=== PATIENT | female | born 1955 | race African-American/Black ===

== ENCOUNTER 2016-08-05 03:43 | Emergency (ER) | payer MEDICAID, OTHER ==
[~2016-08-05] VITALS: Ht 157.5 cm; Wt 68.9 kg
--- NOTE | 2016-08-05 03:50 | NUR ---
61 YO FEMALE BB RA FROM HOME. PT IS LAERT X 3, C/O CHEST PRESSURE. PT AMBULATED TO ER BED WITH STEADY GAIT, SKIN WARM AND DRY, RR EVEN AND UNLABORED. PT GOWNED, PLACED ON SHADE CUTTER. WILL CONITNUE TO MONITOR
[2016-08-05 04:07] LABS: BASOPHILS % (AUTO) 0.9 % (0.0-2.0); EOSINOPHILS # (AUTO) 0.1 /CMM (0.0-0.7); EOSINOPHILS % (AUTO) 1.8 % (0.0-6.0); HEMATOCRIT 31 % (33-45); HEMOGLOBIN 10.6 g/dL (11.5-14.8); LYMPHOCYTES # (AUTO) 2.2 /CMM (0.8-4.8); LYMPHOCYTES % (AUTO) 50.7 % (20.0-44.0); MEAN CORPUSCULAR HEMOGLOBIN 32 PG (26.0-33.0); MEAN CORPUSCULAR HGB CONC 34 g/dl (31.0-36.0); MEAN CORPUSCULAR VOLUME 94 fL (82-100); MONOCYTES # (AUTO) 0.4 /CMM (0.1-1.30); NEUTROPHILS # (AUTO) 1.6 /CMM (1.8-8.9); NEUTROPHILS % (AUTO) 36.6 % (43.0-81.0); PLATELET COUNT (AUTO) 190 /CMM (150-450); RDW COEFFICIENT OF VARIATION 14.5 (11.5-15.0); RED BLOOD CELL COUNT(AUTO) 3.32 MIL/uL (4.0-5.2); WHITE BLOOD COUNT (AUTO) 4.3 K/uL (4.3-11.0)
[2016-08-05 04:15] LABS: CALCIUM, SERUM 9.2 mg/dL (8.5-10.1); CARBON DIOXIDE 25 mmol/L (21-32); CHLORIDE 105 mmol/L (98-107); CREATININE 0.7 mg/dL (0.6-1.3); GLUCOSE 86 mg/dL (74-106); POTASSIUM 3.5 mmol/L (3.5-5.1); SODIUM SERUM 141 mmol/L (136-145); UREA NITROGEN, BLOOD 21 mg/dL (7-18)
[2016-08-05 04:19] LABS: INR 0.93 (0.87-1.13); PROTHROMBIN TIME 9.9 SECS (9.5-12.7)
[2016-08-05 04:24] LABS: TROPONIN I < 0.017 ng/mL (0.00-0.056)
[2016-08-05] MEDS ORDERED: IBUPROFEN 400 MG TABLET ONE (04:46)
[2016-08-05 04:50] VITALS: BP 150/87
--- NOTE | 2016-08-05 04:51 | NUR ---
Patient discharged to home in stable condition. Written and verbal after care instructions given. Patient verbalizes understanding of instruction. PT ambulatory with a steady gait VITAL SIGNS WITHIN NORMAL LIMITS.
[2016-08-05] MEDS ORDERED: IBUPROFEN 400 MG TABLET PO ONE (05:00)
== END 2016-08-05 04:51 | disposition home or self-care (01) ==
LOC: ER 03:46
DX: R07.89 Other chest pain (principal); R11.0 Nausea; D21.9 Benign neoplasm of connective and other soft tissue, unspecified
CPT/HCPCS: 36415; 71010-TC; 80048-TC; 84484-TC; 85025-TC; 85730-TC; A4606; Z7610

== ENCOUNTER 2016-10-09 11:22 | Emergency (ER) | payer MEDICAID, OTHER ==
[~2016-10-09] VITALS: Ht 152.4 cm; Wt 61.7 kg
--- NOTE | 2016-10-09 11:30 | NUR ---
PT TO ER BED 09. C/O HEADACHE UNRELIEVED W/ MEDS. STATES BEEN HAVING HEADACHES SINCE SUFFERING FROM A CONTUSION 2 YEARS AGO. NO RECENT TRAUMA. PT IS AAO, NAD NOTED AWAITING MD BROOKS.
--- NOTE | 2016-10-09 11:37 | NUR ---
DR OLSEN AT BEDSIDE FOR EVAL.
[2016-10-09] MEDS ORDERED: METOCLOPRAMIDE HCL 10 MG/2 ML VIAL IV ONE (12:00)
[2016-10-09] MEDS ORDERED: diphenhydrAMINE HCL 50 MG/ML VIAL IV ONE (12:00)
[2016-10-09] MEDS ORDERED: IV NS 0.9% 1,000 ML BAG IV ONE (12:00)
[2016-10-09] MEDS ORDERED: ONDANSETRON 4 MG TAB.RAPDIS PO ONE (12:00)
[2016-10-09] MEDS ORDERED: DEXAMETHASONE SOD PHOSPHATE 10 MG/ML VIAL IV ONE (12:00)
[2016-10-09] MEDS ORDERED: METOCLOPRAMIDE HCL 10 MG/2 ML VIAL ONE (12:27)
[2016-10-09] MEDS ORDERED: diphenhydrAMINE HCL 50 MG/ML VIAL ONE (12:27)
[2016-10-09] MEDS ORDERED: DEXAMETHASONE SOD PHOSPHATE 10 MG/ML VIAL ONE (12:27)
[2016-10-09] MEDS ORDERED: ONDANSETRON 4 MG TAB.RAPDIS ONE (12:28)
[2016-10-09 12:31] LABS: APPEARANCE,URINE Clear (CLEAR); BILIRUBIN,URINE Negative (NEGATIVE); BLOOD, URINE Negative Ery/uL (NEGATIVE); COLOR,URINE Yellow (YELLOW); KETONES,URINE 15 (NEGATIVE); LEUKOCYTE ESTERASE ,URINE Negative (NEGATIVE); NITRITE, URINE Negative (NEGATIVE); PROTEIN,URINE Negative (NEGATIVE); UGLUCOSE Negative (NEGATIVE); UROBILINOGEN,URINE 0.2 EU/dL (0.2)
[2016-10-09 12:43] LABS: BACTERIA,URINE Few /HPF (None Seen); RBC,URINE 0-2 /HPF (0-2); SQUAMOUS EPITHELIAL CELL,UR Rare /HPF (None Seen); WBC,URINE 0-2 /HPF (0-3)
[2016-10-09 13:38] VITALS: BP 148/84
--- NOTE | 2016-10-09 13:38 | NUR ---
Patient discharged to home in stable condition. Written and verbal after care instructions given. Patient verbalizes understanding of instruction.IV removed. Catheter intact and site benign. Pressure and 4x4 applied to site. No bleeding noted.
== END 2016-10-09 13:43 | disposition home or self-care (01) ==
LOC: ER 11:27
DX: G43.909 Migraine, unspecified, not intractable, without status migrainosus (principal)
CPT/HCPCS: 81001; 96374; 96375; 99284; A4606; J1100; J1200; J2765; J7030; Q0162; Z7610; 81000-TC

== ENCOUNTER 2018-04-27 11:39 | Emergency (ER) | payer OTHER ==
[~2018-04-27] VITALS: Ht 149.9 cm; Wt 76.7 kg
[2018-04-27 11:51] VITALS: BP 135/85
== END 2018-04-27 12:10 | disposition home or self-care (01) ==
LOC: ER 11:39
DX: G89.29 Other chronic pain (principal); Z98.890 Other specified postprocedural states
CPT/HCPCS: Z7502

== ENCOUNTER 2018-08-23 07:25 | Emergency (ER) | payer MEDICAID, OTHER ==
[~2018-08-23] VITALS: Ht 149.9 cm; Wt 74.8 kg
[2018-08-23 07:30] VITALS: BP 131/96
[2018-08-23] MEDS ORDERED: HYDROCODONE/APAP 5/325MG 1 EACH TABLET ONE (07:54)
[2018-08-23] MEDS ORDERED: HYDROCODONE/APAP 5/325MG 1 EACH TABLET PO ONE (08:00)
[2018-08-23] MEDS ORDERED: IV NS 0.9% 1,000 ML BAG IV ONE (08:30)
== END 2018-08-23 08:21 | disposition home or self-care (01) ==
LOC: ER 07:27
DX: G89.29 Other chronic pain (principal); M25.512 Pain in left shoulder; Z98.890 Other specified postprocedural states

== ENCOUNTER 2021-09-09 14:27 | Emergency (ER) | payer MEDICARE, OTHER ==
[~2021-09-09] VITALS: Ht 149.9 cm; Wt 70.3 kg
[2021-09-09 14:37] VITALS: BP 146/87
--- NOTE | 2021-09-09 14:40 | NUR ---
The patient bibs for "Rash on hand x5wks, Nail chipping and face seems swollen x3d". In room air and denies SOB. Respiration regular and unlabored. WIll continue to monitor the patient.
[2021-09-09] MEDS ORDERED: TRIA60LO7 TP (14:51)
--- NOTE | 2021-09-09 15:01 | NUR ---
Patient discharged to home in stable condition. Written and verbal after care instructions given. Patient verbalizes understanding of instruction.
== END 2021-09-09 15:02 | disposition home or self-care (01) ==
LOC: ER 14:41
DX: L30.9 Dermatitis, unspecified (principal); Z98.890 Other specified postprocedural states

== ENCOUNTER 2022-04-19 20:17 | Emergency (ER) | payer MEDICARE, OTHER ==
[~2022-04-19] VITALS: Ht 149.9 cm; Wt 67.6 kg
[~2022-04-19 20:17] MED LIST: TRIA60LO7 TP
[2022-04-19 22:34] VITALS: BP 160/89
--- NOTE | 2022-04-19 22:36 | NUR ---
ARMANDO FROM HOME REQUESTING MED REFILL FOR MIGRAINE & TDAP
[2022-04-19] MEDS ORDERED: TDAP [DIPH/PERTUSSIS/TET] 0.5 ML VIAL IM ONE ×2 (22:39→23:00)
[2022-04-19] MEDS ORDERED: BUTA1CAP58 PO ×2 (22:46→22:49)
--- NOTE | 2022-04-19 23:15 | NUR ---
Patient discharged to home in stable condition. Written and verbal after care instructions given. Patient verbalizes understanding of instruction.
== END 2022-04-19 23:36 | disposition home or self-care (01) ==
LOC: ER 20:18
DX: G43.909 Migraine, unspecified, not intractable, without status migrainosus (principal); Z98.890 Other specified postprocedural states; Z79.899 Other long term (current) drug therapy
CPT/HCPCS: 73630-TC; 90715

== ENCOUNTER 2022-06-07 16:57 | Inpatient (IN) | payer BC, MEDICARE, OTHER ==
[~2022-06-07] VITALS: Ht 149.9 cm; Wt 66.7 kg
[~2022-06-07 16:57] MED LIST changes: +BUTA1CAP58 PO
--- NOTE | 2022-06-07 17:22 | NUR ---
BIBS FOR DEPRESSION/SI. A/O X 3, ABLE TO MAKE NEEDS KNOWN, TOLERATING WELL ON ROOM AIR.
--- NOTE | 2022-06-07 17:22 | NUR ---
PATIENT WITH FAMILY MEMBER AT BEDSIDE
--- NOTE | 2022-06-07 17:30 | NUR ---
BLOOD SAMPLES OBTAINED
--- NOTE | 2022-06-07 17:30 | NUR ---
URINE SAMPLE OBTAINED
[2022-06-07 17:54] LABS: BILIRUBIN,URINE NEGATIVE (NEGATIVE); COLOR,URINE YELLOW (YELLOW); LEUKOCYTE ESTERASE ,URINE TRACE (NEGATIVE); NITRITE, URINE NEGATIVE (NEGATIVE); PROTEIN,URINE NEGATIVE (NEGATIVE); UGLUCOSE NEGATIVE (NEGATIVE); UROBILINOGEN,URINE 0.2 EU/dL (0.2)
[2022-06-07 18:00] LABS: BASOPHILS % (AUTO) 0.9 % (0.0-2.0); EOSINOPHILS % (AUTO) 2.7 % (0.0-6.0); HEMATOCRIT 30 % (33-45); LYMPHOCYTES % (AUTO) 52.8 % (20.0-44.0); MEAN CORPUSCULAR HGB CONC 33 g/dl (31.0-36.0); MEAN CORPUSCULAR VOLUME 94 fL (82-100); MONOCYTES # (AUTO) 0.3 K/uL (0.1-1.30); MONOCYTES % (AUTO) 7.6 % (2.0-12.0); NEUTROPHILS # (AUTO) 1.4 K/uL (1.8-8.9); PLATELET COUNT (AUTO) 213 K/uL (150-450); RED BLOOD CELL COUNT(AUTO) 3.18 MIL/uL (4.0-5.2); WHITE BLOOD COUNT (AUTO) 3.8 K/uL (4.3-11.0)
[2022-06-07 18:14] LABS: CALCIUM, SERUM 9.4 mg/dL (8.5-10.1); CARBON DIOXIDE 26 mmol/L (21-32); CHLORIDE 107 mmol/L (98-107); CREATININE 0.7 mg/dL (0.6-1.3); GLUCOSE 86 mg/dL (74-106); POTASSIUM 3.6 mmol/L (3.5-5.1); SODIUM SERUM 143 mmol/L (136-145); UREA NITROGEN, BLOOD 15 mg/dL (7-18)
[2022-06-07 18:20] LABS: ALANINE AMINOTRANSFERASE 33 U/L (12-78); ALBUMIN 3.5 g/dL (3.4-5.0); ALKALINE PHOSPHATASE 78 U/L (46-116); ASPARTATE AMINOTRANSFERASE 26 U/L (15-37); BILIRUBIN,DIRECT 0.1 mg/dL (0.0-0.2); BILIRUBIN,TOTAL 0.3 mg/dL (0.2-1.0); TOTAL PROTEIN, SERUM 6.7 g/dL (6.4-8.2)
[2022-06-07 18:26] LABS: ALCOHOL, BLOOD < 3 mg/dL (0-0)
[2022-06-07 18:49] LABS: RBC,URINE 0-2 /HPF (0-2); WBC,URINE NONE SEEN /HPF (0-3)
[2022-06-07 18:50] LABS: BACTERIA,URINE None seen /HPF (None Seen); SQUAMOUS EPITHELIAL CELL,UR Rare /HPF (None Seen)
--- NOTE | 2022-06-07 21:13 | NUR ---
FAXED CLINICALS TO [facility].
--- NOTE | 2022-06-07 22:08 | NUR ---
CALLED MATEUS [phone]
--- NOTE | 2022-06-08 01:31 | NUR ---
REPORT GIVEN TO MAHNAZ CABALLERO FOR CHRIS
[2022-06-08 02:00] VITALS: BP 147/81
--- NOTE | 2022-06-08 02:09 | NUR ---
PT TRANSFERRED TO [facility]
--- NOTE | 2022-06-08 02:27 | NUR ---
RN NOTES : ADMISSION NOTES: ADMITTED THIS 67Y/O FEMALE PATIENT ADMITTED FROM [facility], INITIALLY FROM HOME. ADMITTED TO 5150 HOLD PER HOLD GD , PT. HEARING VOICES,TELLING HER TO HURT HERSELF AND ACTING IN A BIZARRE BEHAVIOUR , A, UPON FACE TO FACE ASSESSMENT PATIENT IS A&OX3 ,DEPRESSED,EASILY AGITATED ,COOPERTIVE,POOR DECISION MAKING, BIZARRE,DENIES SI /HI AT THIS TIME, PT. IS POOR HISTORIAN, POOR INSIGHT ,POOR JUDGEMENT , BOTH MD AWARE AND NOTIFIED OF THE ADMISSION, BELONGINGS CONTRABAND WERE DONE , PT. RIGHTS DISCUSS BY COLLECTIONS OFFICER , PROVIDE THE PT. WITH HANDBOOK, AND MEDICATIONS GUIDE, ENVIRONMENTAL SAFETY CHECK DONE, ENCOURAGED PT. VERBALIZED ANY FEELING CONCERN TO STAFF, ORIENT TO UNIT POLICY, NO ACUTE DISTRESS NOTED,VITAL SIGNS WNL ,DENIES ANY PAIN AT THIS TIME,WILL CONTINUE TO MONITOR FOR Q15 SAFETY AND BEHAVIOR.
[2022-06-08] MEDS ORDERED: IBUP-1953 PO (02:29)
[2022-06-08] MEDS ORDERED: SERT100T PO (02:32)
[2022-06-08] MEDS ORDERED: RISP0.5T65 PO (02:32)
[2022-06-08] MEDS ORDERED: BUSP10TA3 PO (02:33)
[2022-06-08] MEDS ORDERED: GABA-532 PO (02:34)
[2022-06-08] MEDS ORDERED: DICL100G34 TP (02:36)
[2022-06-08] MEDS ORDERED: ONDA4TAB11 PO (02:38)
[2022-06-08] MEDS ORDERED: ACETAMINOPHEN 325 MG TABLET PO PRN (03:00)
[2022-06-08] MEDS ORDERED: MAGNESIUM HYDROXIDE 30 ML UDC PO PRN (03:00)
[2022-06-08] MEDS ORDERED: LORAZEPAM 0.5 MG TABLET PO PRN (03:00)
[2022-06-08] MEDS ORDERED: MAG HYDROX/AL HYDROX/SIMETH 30 ML UDC PO PRN (03:00)
[2022-06-08] MEDS ORDERED: BLOOD SUGAR DIAGNOSTIC 1 EACH STRIP IN ONE (03:00)
[2022-06-08] MEDS ORDERED: TEMAZEPAM 7.5 MG CAPSULE PO PRN (03:00)
[2022-06-08 03:20] VITALS: BP 123/74
[2022-06-08] MEDS ORDERED: DICLOFENAC TOPICAL 100 GM TUBE TP PRN (04:00)
[2022-06-08] MEDS ORDERED: VITAMINS A AND D 56.7 GM TUBE TP PRN (05:30)
[2022-06-08 08:00] VITALS: BP 143/80
[2022-06-08] MEDS: TRIAMCINOLONE 0.025% ACETONIDE 60 ML BOTTLE TP SCH ×2 (09:39→17:23)
[2022-06-08] MEDS: IBUPROFEN 400 MG TABLET PO PRN (13:07)
--- NOTE | 2022-06-08 13:07 | NUR ---
NURSE NOTE: PT C/O PAIN AT THIS TIME, MOTRIN PO ADMINISTERED ORDERED. PT BREANA WELL WILL CONT TO MONITOR.
[2022-06-08] MEDS: SERTRALINE HCL 50 MG TABLET PO SCH (13:51)
[2022-06-08] MEDS: risperiDONE 1 MG TABLET PO SCH ×2 (13:51→17:23)
--- NOTE | 2022-06-08 14:07 | NUR ---
NURSE NOTE: PT RESTING AT THIS TIME. MOTRIN EFFECTIVE AT THIS TIME. WILL CONT TO MONITOR.
[2022-06-08 16:00] VITALS: BP 121/55
[2022-06-08] MEDS: busPIRone 5 MG TABLET PO SCH (17:23)
--- NOTE | 2022-06-08 19:48 | NUR ---
WORK CHECKER NOTES: RECEIVED PATIENT IN BED ASLEEP COMFORTABLY ,NO ACUTE DISRTRESS.A/OX 3. ABLE TO VERBALIZED NEEDS AND CONCERNED.RESPIRATION EVEN AND NON-LABORED. NO C/O PAIN AT THIS TIME. DENIES SUICIDAL IDEATIONS AT THIS TIME.PATIENT IS CALM ,COOPERATIVE AND AMBULATORY WITH STEADY GAIT. WILL CONTINUE TO MONITOR Q15 FOR SAFETY AND BEHAVIOR WITH HELP OF STAFF.
[2022-06-08 21:09] VITALS: BP 121/59
[2022-06-09 07:08] LABS: BASOPHILS % (AUTO) 0.8 % (0.0-2.0); EOSINOPHILS % (AUTO) 3.5 % (0.0-6.0); HEMATOCRIT 31 % (33-45); HEMOGLOBIN 10.4 g/dL (11.5-14.8); LYMPHOCYTES # (AUTO) 1.4 K/uL (0.8-4.8); LYMPHOCYTES % (AUTO) 49.3 % (20.0-44.0); MEAN CORPUSCULAR HGB CONC 33 g/dl (31.0-36.0); MEAN CORPUSCULAR VOLUME 95 fL (82-100); MONOCYTES # (AUTO) 0.3 K/uL (0.1-1.30); MONOCYTES % (AUTO) 11.5 % (2.0-12.0); NEUTROPHILS % (AUTO) 34.9 % (43.0-81.0); PLATELET COUNT (AUTO) 206 K/uL (150-450); RED BLOOD CELL COUNT(AUTO) 3.29 MIL/uL (4.0-5.2); WHITE BLOOD COUNT (AUTO) 2.9 K/uL (4.3-11.0)
[2022-06-09 07:38] LABS: THYROID STIMULATING HORMONE 1.212 uIU/mL (0.358-3.74)
[2022-06-09 07:53] LABS: CALCIUM, SERUM 9.2 mg/dL (8.5-10.1); CREATININE 0.8 mg/dL (0.6-1.3); POTASSIUM 4.1 mmol/L (3.5-5.1)
[2022-06-09 08:00] VITALS: BP 123/71
[2022-06-09] MEDS: risperiDONE 1 MG TABLET PO SCH ×2 (08:28→17:04)
[2022-06-09] MEDS: busPIRone 5 MG TABLET PO SCH ×2 (08:28→17:04)
[2022-06-09] MEDS: TRIAMCINOLONE 0.025% ACETONIDE 60 ML BOTTLE TP SCH ×2 (08:28→17:05)
[2022-06-09] MEDS: IBUPROFEN 400 MG TABLET PO PRN (12:48)
[2022-06-09] MEDS: SERTRALINE HCL 50 MG TABLET PO SCH (12:48)
--- NOTE | 2022-06-09 12:48 | NUR ---
NURSE NOTE: PT C/O PAIN AT LEVEL 9/10. MOTRIN PO ADMINISTERED ORDERED. PT BREANA WELL. WILL CONT TO MONITOR.
--- NOTE | 2022-06-09 13:48 | NUR ---
NURSE NOTE: PT STATED THAT SHE IS FEELING A LITTLE BETTER. MOTRIN EFFECTIVE AT THIS TIME. WILL CONT TO MONITOR.
[2022-06-09 16:00] VITALS: BP 116/65
[2022-06-09 20:41] VITALS: BP 112/53
[2022-06-09] MEDS ORDERED: risperiDONE 1 MG TABLET PO SCH (22:00)
[2022-06-10 08:00] VITALS: BP 139/86
[2022-06-10] MEDS: risperiDONE 1 MG TABLET PO SCH ×3 (08:33→21:41)
[2022-06-10] MEDS: TRIAMCINOLONE 0.025% ACETONIDE 60 ML BOTTLE TP SCH ×2 (08:34→16:40)
[2022-06-10] MEDS: busPIRone 5 MG TABLET PO SCH ×2 (08:34→16:39)
--- NOTE | 2022-06-10 10:10 | NUR ---
KENY Initial Discharge Note: Patient lives at home located at [address] [place] [address], [place] [address]; ([phone]). Pt stated that she lives with her daughter Tomasa ([phone]). Pt would want to return back home. KENY will work with the MD, family, and treatment team.
--- NOTE | 2022-06-10 10:11 | NUR ---
KENY Clinical Note: Pt placed on a 5150 hold for GD. Pt brought in due to aggressive behavior. Patient lives at home located at [address] [place] [address]; ([phone]). Pt stated that she lives with her daughter Tomasa ([phone]).
[2022-06-10] MEDS: SERTRALINE HCL 50 MG TABLET PO SCH (13:07)
--- NOTE | 2022-06-10 13:08 | NUR ---
KENY Family Contact: SW contacted pt's daughter Toamsa ([phone]) and discussed pt's treatment/discharge plan. Pt welcomed back home. Daughter cares for pt at home.
[2022-06-10 16:00] VITALS: BP 104/57
[2022-06-10 20:22] VITALS: BP 112/55
[2022-06-10] MEDS: ATORVASTATIN 10 MG TABLET PO SCH (21:41)
--- NOTE | 2022-06-11 07:15 | NUR ---
RESEARCH QUALITY ASSURANCE ANALYST OPENING NOTE PATIENT A/A/OX3, VERY HAPPY AND COMMUNICATIVE. C/O CONTINUE TO HAVE HEADACHES, OCC. LEVEL 8-9 IN SCALE 1-10. I EXPLAINED TO PATIENT THAT WE WILL REVIEW PAIN MANAGEMENT WITH HER DOCTOR, FOR NOW I WILL ADMINISTER THE PAIN MEDICATION FOLLOWING DOCTORS ORDERS. PATIENT VERBALIZED UNDERSTANDING INSTRUCTIONS. SAFETY MEASURES IN PLACE, BED LOCK TO THE LOWEST POSITION, CALL LIGHT, TABLE WITHIN REACH. CONT. TO MONITOR.
[2022-06-11 08:00] VITALS: BP 135/77
[2022-06-11] MEDS: busPIRone 5 MG TABLET PO SCH ×2 (09:34→17:24)
[2022-06-11] MEDS: TRIAMCINOLONE 0.025% ACETONIDE 60 ML BOTTLE TP SCH ×2 (11:13→17:25)
[2022-06-11] MEDS: SERTRALINE HCL 50 MG TABLET PO SCH (13:11)
[2022-06-11 16:00] VITALS: BP 109/67
[2022-06-11] MEDS: risperiDONE 1 MG TABLET PO SCH ×2 (17:24→21:05)
--- NOTE | 2022-06-11 19:10 | NUR ---
PETROLEUM INSPECTOR SUPERVISOR CLOSING NOTE PATIENT PLEASANT, NO S/S OF DISCOMFORT NOTED. PATIENT DENIES PAIN. PATIENT IS AMBULATING. SAFETY MEASURES IN PLACE BED LOCK TO THE LOWEST POSITION. TABLE WITHIN REACH. WILL ENDORSE TO THE FOLLOWING NURSE.
[2022-06-11 19:58] VITALS: BP 107/55
[2022-06-11] MEDS: ATORVASTATIN 10 MG TABLET PO SCH (21:05)
[2022-06-12 08:00] VITALS: BP 126/76
[2022-06-12] MEDS: busPIRone 5 MG TABLET PO SCH ×2 (08:42→17:31)
[2022-06-12] MEDS: risperiDONE 1 MG TABLET PO SCH ×3 (08:42→21:29)
[2022-06-12] MEDS: TRIAMCINOLONE 0.025% ACETONIDE 60 ML BOTTLE TP SCH ×2 (08:43→17:35)
--- NOTE | 2022-06-12 12:09 | NUR ---
Court Notification: SW contacted pt's daughter Tomasa ([phone]) and left a voicemail of [phone].
--- NOTE | 2022-06-12 12:09 | NUR ---
Court Hearing: Patient's court hearing for 5250 was today and it was upheld for GD and danger to self.
[2022-06-12] MEDS: SERTRALINE HCL 50 MG TABLET PO SCH (12:51)
[2022-06-12 16:00] VITALS: BP 106/59
[2022-06-12 20:08] VITALS: BP 106/58
[2022-06-12] MEDS: ATORVASTATIN 10 MG TABLET PO SCH (21:29)
[2022-06-13 08:00] VITALS: BP 112/62
[2022-06-13] MEDS: busPIRone 5 MG TABLET PO SCH ×2 (08:08→16:48)
[2022-06-13] MEDS: risperiDONE 1 MG TABLET PO SCH ×3 (08:09→21:42)
[2022-06-13] MEDS: TRIAMCINOLONE 0.025% ACETONIDE 60 ML BOTTLE TP SCH ×2 (08:11→17:00)
--- NOTE | 2022-06-13 09:15 | NUR ---
RN Notes: Received pt. awake in room, pleasant upon approached and responsive to staffs. Ate 100% for breakfast and compliant on meds. Encouraged to verbalize feelings and motivated to attend group activity. Needs attended and will continue to monitor for safety.
[2022-06-13] MEDS: SERTRALINE HCL 50 MG TABLET PO SCH (12:16)
[2022-06-13 16:00] VITALS: BP 118/69
--- NOTE | 2022-06-13 17:17 | NUR ---
Per pharmacist (Maris), Kenalog is out of stock and it will come tomorrow.
--- NOTE | 2022-06-13 19:30 | NUR ---
[facility] RN NOTE, RECEIVED PATIENT AWAKE AND IN BED, HAS A COMPLAINT OF CHRONIC GENERALIZED PAIN AT 2 OUT OF 10 ON THE PAIN SCALE. PATIENT IS TAKING MEDICATION FOR THIS PAIN. PATIENT IS DISPLAYING NO S/S OF APPARENT DISTRESS AT THIS TIME. PATIENT BREATHING IS UNLABORED WITH EQUAL RISE AND FALL OF THE CHEST. PATIENT IS ALERT AND ORIENTED X 3 ON ROOM AIR WITH A SPO2 98%. PATIENT IS COMPLIANT WITH MEDICATIONS, POLITE, CALM, MAKES NEEDS KNOWN, AND COOPERATIVE. PATIENT DENIES SUICIDAL AND HOMICIDAL IDEATIONS AT THIS TIME. PATIENT ASSISTED WITH TURNING AND REPOSITIONING Q2HR AND PRN FOR COMFORT AND CIRCULATION. PATIENT HAS NO NEEDS AT THIS TIME. PATIENT EDUCATED ON THE USE OF THE CALL CARLOS. PATIENT BED SIDE RAILS UP X 2 FOR SAFETY. PATIENT BED IS LOCKED, LOW, WITH BED ALARM ON. WILL CONTINUE TO MONITOR THIS PATIENT Q15 MINUTES WITH THE HELP OF STAFF TO MAINTAIN SAFETY.
[2022-06-13] MEDS: IBUPROFEN 400 MG TABLET PO PRN (19:33)
--- NOTE | 2022-06-13 19:33 | NUR ---
[facility]PS RN NOTE, PATIENT HAS A COMPLAINT OF CHRONIC LOWER BACK PAIN AT 2 OUT OF 10 ON THE PAIN SCALE AND IS REQUESTING MOTRIN AT THIS TIME. PATIENT VITAL SIGNS ARE STABLE. GAVE MOTRIN 400 MG PO Q6HR PRN ORDERED. WILL REASSESS PAIN AND I WILL CONTINUE TO MONITOR THIS PATIENT WITH THE HELP OF STAFF.
[2022-06-13 20:00] VITALS: BP 115/66
[2022-06-13] MEDS: ATORVASTATIN 10 MG TABLET PO SCH (21:42)
[2022-06-14 08:00] VITALS: BP 114/67
[2022-06-14] MEDS: BENZTROPINE MESYLATE (1 MG) 1 MG TABLET PO SCH ×3 (08:21→16:07)
[2022-06-14] MEDS: risperiDONE 1 MG TABLET PO SCH ×3 (08:21→21:31)
[2022-06-14] MEDS: busPIRone 5 MG TABLET PO SCH ×2 (08:22→16:07)
[2022-06-14] MEDS: TRIAMCINOLONE 0.025% ACETONIDE 60 ML BOTTLE TP SCH ×2 (09:00→16:07)
--- NOTE | 2022-06-14 09:16 | NUR ---
Tawana first given at 0812 Addendum: 06/14/22 at 1625 by KIMBERLY ZAMUDIO RN first dose not given
--- NOTE | 2022-06-14 09:50 | NUR ---
RN Notes: Received pt. awake in her room, interacting with the room mate and responsive to staffs. Ate 100% for breakfast and compliant on meds. Encouraged to verbalize feelings , encouraged to take shower and motivated to attend group activity. Needs attended, no distress and no agitation noted. Will continue to monitor for safety.
[2022-06-14] MEDS: SERTRALINE HCL 50 MG TABLET PO SCH (12:22)
[2022-06-14 16:00] VITALS: BP 131/65
--- NOTE | 2022-06-14 19:52 | NUR ---
RN OPENING NOTES RECEIVED PATIENT IN BED, AWAKE AND VERBALIZE CONCERNS. A/O X 3. ON MODERATE HIGH BACK REST POSITION. PATIENT IS COOPERATIVE TO TREATMENT AND AMBULATE WITH STEADY GAIT. ENCOURAGE TO VERBALIZED FEELING, INCREASED ORAL INTAKE TOLERATED. KEPT BED ON LOWER LOCKED POSITION, KEPT SIDE RAILS X 2 ALL THE TIME, KEPT SAFETY MEASURES. WILL CONTINUE TO MONITOR.
[2022-06-14 20:00] VITALS: BP 139/67
[2022-06-14] MEDS: ATORVASTATIN 10 MG TABLET PO SCH (21:31)
[2022-06-15 07:35] LABS: BASOPHILS % (AUTO) 1.1 % (0.0-2.0); EOSINOPHILS % (AUTO) 3.8 % (0.0-6.0); HEMATOCRIT 27 % (33-45); HEMOGLOBIN 9.1 g/dL (11.5-14.8); LYMPHOCYTES # (AUTO) 1.4 K/uL (0.8-4.8); LYMPHOCYTES % (AUTO) 41.3 % (20.0-44.0); MEAN CORPUSCULAR HGB CONC 33 g/dl (31.0-36.0); MEAN CORPUSCULAR VOLUME 96 fL (82-100); MONOCYTES # (AUTO) 0.5 K/uL (0.1-1.30); NEUTROPHILS # (AUTO) 1.3 K/uL (1.8-8.9); NEUTROPHILS % (AUTO) 38.8 % (43.0-81.0); PLATELET COUNT (AUTO) 176 K/uL (150-450); RED BLOOD CELL COUNT(AUTO) 2.87 MIL/uL (4.0-5.2); WHITE BLOOD COUNT (AUTO) 3.4 K/uL (4.3-11.0)
[2022-06-15 08:00] VITALS: BP 127/86
[2022-06-15 08:06] LABS: CALCIUM, SERUM 9.1 mg/dL (8.5-10.1); CREATININE 0.8 mg/dL (0.6-1.3); PHOSPHORUS 4.6 mg/dL (2.5-4.9); POTASSIUM 4.5 mmol/L (3.5-5.1)
[2022-06-15] MEDS: busPIRone 5 MG TABLET PO SCH ×2 (08:11→16:36)
[2022-06-15] MEDS: risperiDONE 1 MG TABLET PO SCH ×3 (08:11→21:19)
[2022-06-15] MEDS: BENZTROPINE MESYLATE (1 MG) 1 MG TABLET PO SCH ×2 (08:11→16:36)
[2022-06-15] MEDS: TRIAMCINOLONE 0.025% ACETONIDE 60 ML BOTTLE TP SCH ×2 (09:06→16:36)
--- NOTE | 2022-06-15 09:15 | NUR ---
RN Notes: Received pt. awake in her room and responsive to staffs. Ate 100% for breakfast and compliant on meds and skin treatment. Encouraged to verbalize feelings , encouraged to take shower and motivated to attend group activity. Needs attended, no distress and no agitation noted. Will continue to monitor for safety.
[2022-06-15] MEDS: SERTRALINE HCL 50 MG TABLET PO SCH (12:17)
[2022-06-15 16:00] VITALS: BP 101/50
[2022-06-15 20:00] VITALS: BP 140/67
--- NOTE | 2022-06-15 20:15 | NUR ---
STUDY ABROAD COORDINATOR NOTES: RECEIVED PATIENT IN BED AWAKE ,NO ACUTE DISRTRESS.A/OX 3. ABLE TO VERBALIZED NEEDS AND CONCERNED.RESPIRATION EVEN AND NON-LABORED. NO C/O PAIN AT THIS TIME. DENIES SUICIDAL IDEATIONS AT THIS TIME.PATIENT IS CALM ,COOPERATIVE AND AMBULATORY WITH STEADY GAIT. WILL CONTINUE TO MONITOR Q15 FOR SAFETY AND BEHAVIOR WITH HELP OF STAFF
[2022-06-15] MEDS: ATORVASTATIN 10 MG TABLET PO SCH (21:19)
[2022-06-16 08:00] VITALS: BP 128/77
[2022-06-16] MEDS: busPIRone 5 MG TABLET PO SCH ×2 (09:15→16:06)
[2022-06-16] MEDS: BENZTROPINE MESYLATE (1 MG) 1 MG TABLET PO SCH ×2 (09:15→16:06)
[2022-06-16] MEDS: risperiDONE 1 MG TABLET PO SCH ×3 (09:15→21:40)
[2022-06-16] MEDS: TRIAMCINOLONE 0.025% ACETONIDE 60 ML BOTTLE TP SCH ×2 (09:20→17:41)
[2022-06-16] MEDS: SERTRALINE HCL 50 MG TABLET PO SCH (12:42)
[2022-06-16 16:00] VITALS: BP 127/92
[2022-06-16 20:32] VITALS: BP 140/83
[2022-06-16] MEDS: ATORVASTATIN 10 MG TABLET PO SCH (21:40)
[2022-06-17 08:00] VITALS: BP 133/69
[2022-06-17] MEDS: busPIRone 5 MG TABLET PO SCH ×2 (08:44→16:46)
[2022-06-17] MEDS: BENZTROPINE MESYLATE (1 MG) 1 MG TABLET PO SCH ×2 (08:44→16:46)
[2022-06-17] MEDS: risperiDONE 1 MG TABLET PO SCH ×3 (08:44→21:07)
[2022-06-17] MEDS: TRIAMCINOLONE 0.025% ACETONIDE 60 ML BOTTLE TP SCH ×2 (08:45→16:47)
[2022-06-17] MEDS: SERTRALINE HCL 50 MG TABLET PO SCH (13:22)
[2022-06-17 16:00] VITALS: BP 150/70
[2022-06-17 20:04] VITALS: BP 139/68
[2022-06-17] MEDS: ATORVASTATIN 10 MG TABLET PO SCH (21:07)
[2022-06-18 08:00] VITALS: BP 146/85
[2022-06-18] MEDS: busPIRone 5 MG TABLET PO SCH ×2 (08:58→16:44)
[2022-06-18] MEDS: BENZTROPINE MESYLATE (1 MG) 1 MG TABLET PO SCH ×2 (08:58→16:44)
[2022-06-18] MEDS: risperiDONE 1 MG TABLET PO SCH ×3 (08:58→21:15)
[2022-06-18] MEDS: TRIAMCINOLONE 0.025% ACETONIDE 60 ML BOTTLE TP SCH ×2 (09:00→16:44)
--- NOTE | 2022-06-18 11:27 | NUR ---
SNF REFERRAL: KENY SENT CLINICALS TO K[facility] FROM [facility] ([phone]) FOR PLACEMENT. SW SENT H & P, PROGRESS NOTES, AND MEDICATION LIST.
--- NOTE | 2022-06-18 12:04 | NUR ---
SNF CONTACT: SW RECEIVED A CALL FROM KAREEM NAPOLES FROM [facility] ([phone]) WHO STATED PT IS ACCEPTED.
--- NOTE | 2022-06-18 12:05 | NUR ---
KENY FAMILY CONTACT: SW CONTACTED PT'S DAUGHTER BELLA ([phone]) AND LEFT A DETAILED VOICEMAIL OF PT BEING ACCEPTED AT [facility] AND GAVE FURTHER INFORMATION.
[2022-06-18] MEDS: SERTRALINE HCL 50 MG TABLET PO SCH (12:45)
--- NOTE | 2022-06-18 18:48 | NUR ---
RN- CLOSING NOTES PATIENT AWAKE, WATCHING TV IN THE DINING ROOM, BREATHING EVEN AND NON LABORED WITH NO S/S OF DISTRESS. PATIENT IS COOPERATIVE, QUIET, GUARDED, AND ANXIOUS. PATIENT IS MEDICATION COMPLIANT. DENIES SI/HI AT THIS TIME. WILL CONTINUE TO MONITOR Q 15 MINUTES FOR SAFETY AND BEHAVIOR.
[2022-06-18 19:54] VITALS: BP 141/74
[2022-06-18] MEDS: ATORVASTATIN 10 MG TABLET PO SCH (21:15)
[2022-06-19 08:00] VITALS: BP 131/86
[2022-06-19] MEDS: TRIAMCINOLONE 0.025% ACETONIDE 60 ML BOTTLE TP SCH ×3 (09:00→17:00)
[2022-06-19] MEDS: BENZTROPINE MESYLATE (1 MG) 1 MG TABLET PO SCH ×2 (09:27→17:30)
[2022-06-19] MEDS: risperiDONE 1 MG TABLET PO SCH ×3 (09:27→21:17)
[2022-06-19] MEDS: busPIRone 5 MG TABLET PO SCH ×2 (09:27→17:30)
[2022-06-19] MEDS: SERTRALINE HCL 50 MG TABLET PO SCH (13:23)
[2022-06-19 16:00] VITALS: BP 145/87
[2022-06-19 20:05] VITALS: BP 161/85
[2022-06-19 20:40] VITALS: BP 141/62
--- NOTE | 2022-06-19 20:40 | NUR ---
RN NOTES-BP RECHECKED RECHECKED PATIENT'S BP LEVEL: 141/62 HR: 72. WILL CONTINUE TO MONITOR THE PATIENT.
[2022-06-19] MEDS: ATORVASTATIN 10 MG TABLET PO SCH (21:16)
[2022-06-20] MEDS: IBUPROFEN 400 MG TABLET PO PRN (03:59)
[2022-06-20 08:00] VITALS: BP 135/55
[2022-06-20] MEDS: busPIRone 5 MG TABLET PO SCH ×2 (08:34→16:32)
[2022-06-20] MEDS: BENZTROPINE MESYLATE (1 MG) 1 MG TABLET PO SCH ×2 (08:34→16:32)
[2022-06-20] MEDS: risperiDONE 1 MG TABLET PO SCH ×3 (08:36→21:22)
[2022-06-20] MEDS: TRIAMCINOLONE 0.025% ACETONIDE 60 ML BOTTLE TP SCH ×2 (08:38→16:32)
[2022-06-20] MEDS: SERTRALINE HCL 50 MG TABLET PO SCH (12:09)
[2022-06-20 16:00] VITALS: BP 123/85
--- NOTE | 2022-06-20 18:15 | NUR ---
RN-NOTES PATIENT IS VISIBLE IN THE ROOM A/OX2,GUARDED.NO ACUTE DISTRESS NOTED.COMPLIANT WITH MEDICATIONS.PATIENT REFUSE GROUPS DESPITE ENCOURAGEMENT. PATIENT PREFERS TO STAY IN THE ROOM AND REST.ALL NEEDS ATTENDED AND ANTICIPATED. PATIENT AMBULATORY WITH STEADY GAIT.WILL CONT.MONITORING FOR SAFETY AND BEHAVIOR.WILL ENDORSE TO INCOMING NURSE FOR THE CONTINUITY OF CARE.
--- NOTE | 2022-06-20 19:30 | NUR ---
GPS RN NOTE, RECEIVED PATIENT AWAKE AND IN BED, NO S/S OR COMPLAINTS OF PAIN AT THIS TIME. PATIENT IS TAKING MEDICATION FOR THIS PAIN. PATIENT IS DISPLAYING NO S/S OF APPARENT DISTRESS AT THIS TIME. PATIENT BREATHING IS UNLABORED WITH EQUAL RISE AND FALL OF THE CHEST. PATIENT IS ALERT AND ORIENTED X 3 ON ROOM AIR WITH A SPO2 98%. PATIENT IS COMPLIANT WITH MEDICATIONS, POLITE, CALM, MAKES NEEDS KNOWN, AND COOPERATIVE. PATIENT DENIES SUICIDAL AND HOMICIDAL IDEATIONS AT THIS TIME. PATIENT ASSISTED WITH TURNING AND REPOSITIONING Q2HR AND PRN FOR COMFORT AND CIRCULATION. PATIENT HAS NO NEEDS AT THIS TIME. PATIENT EDUCATED ON THE USE OF THE CALL CARLOS. PATIENT BED SIDE RAILS UP X 2 FOR SAFETY. PATIENT BED IS LOCKED, LOW, WITH BED ALARM ON. WILL CONTINUE TO MONITOR THIS PATIENT Q15 MINUTES WITH THE HELP OF STAFF TO MAINTAIN SAFETY.
[2022-06-20 20:27] VITALS: BP 141/84
[2022-06-20] MEDS: ATORVASTATIN 10 MG TABLET PO SCH (21:22)
[2022-06-21 08:00] VITALS: BP 152/76
--- NOTE | 2022-06-21 08:08 | NUR ---
SW Discharge Note: Patient will be discharged to [facility] [address] [facility] [facility], [place] [address] ([phone]). Please arrange ambulance transportation at 1PM. Spoke with Tina, Admin Coordinator at the facility who states they are ready to accept the patient today. Patients daughter Tomasa ([phone]) is aware of dc. Patient is alert and oriented x3. Patient denies any suicidal or homicidal ideation. Patient will follow-up at the facility with Dr. Lopez (psychiatrist) [address], [place] [address]; ([phone]) and (Associate Professor Of Church Music) Dr. Hwang [address], [place] [address]; ([phone]). Patient presents with euthymic mood and congruent affect.
[2022-06-21] MEDS: busPIRone 5 MG TABLET PO SCH (08:36)
[2022-06-21] MEDS: BENZTROPINE MESYLATE (1 MG) 1 MG TABLET PO SCH (08:36)
[2022-06-21] MEDS: IBUPROFEN 400 MG TABLET PO PRN (08:36)
[2022-06-21] MEDS: risperiDONE 1 MG TABLET PO SCH (08:36)
--- NOTE | 2022-06-21 08:42 | NUR ---
RN-NOTES PATIENT REQUESTING FOR MOTRIN FOR HER BODY ACHE. MOTRIN 400MG P.O GIVEN PRN ORDER.
[2022-06-21] MEDS: TRIAMCINOLONE 0.025% ACETONIDE 60 ML BOTTLE TP SCH (09:59)
[2022-06-21] MEDS: SERTRALINE HCL 50 MG TABLET PO SCH (12:15)
--- NOTE | 2022-06-21 13:15 | NUR ---
RN-NOTES PATIENT HAD A DISCHARGE ORDER FROM DR. SALINAS ( PSYCHIATRIST),DR. DESAI MEDICALLY CLEARED PATIENT FOR DISCHARGE. [facility].REPORT WAS GIVEN TO [facility].PATIENT LEFT THE UNIT IN STABLE CONDITION A/OX3-4,AMBULATORY WITH STEADY GAIT.PATIENT DID NOT VERBALIZE SI/HI,DENIES VISUAL/AUDITORY HALLUCINATIONS AT THE TIME OF DISCHARGE.PATIENT WAS UNIFORM MAKER BY AMBULANCE VIA GURNEY WITH TWO STAFF ASSIST. ALL BELONGINGS WAS GIVEN BACK TO THE PATIENT. Addendum: 06/21/22 at 1330 by KIM FUCHS RN PATIENT REFUSED PICTURE TAKEN ON HER LEFT HAND STATED" IT IS ALL HEALED NOW NO NEED FOR ANY PICTURES".
== END 2022-06-21 13:15 | DRG 882 ==
LOC: ER 17:10 → GPS 06-08 01:22
PROVIDERS: ADMIT Psychiatry & Neurology Psychosomatic Medicine; ATTEND Nurse Practitioner Family
DX: F43.12 Post-traumatic stress disorder, chronic (principal); F33.2 Major depressive disorder, recurrent severe without psychotic features; R45.851 Suicidal ideations; R41.9 Unspecified symptoms and signs involving cognitive functions and awareness; Y04.2XXS Assault by strike against or bumped into by another person, sequela; R51.9 Headache, unspecified; Z87.820 Personal history of traumatic brain injury; Z91.51 Personal history of suicidal behavior; Z80.0 Family history of malignant neoplasm of digestive organs; H91.90 Unspecified hearing loss, unspecified ear; E78.5 Hyperlipidemia, unspecified; G89.29 Other chronic pain; M25.511 Pain in right shoulder; Z87.828 Personal history of other (healed) physical injury and trauma
CPT/HCPCS: 36415; 70450-TC; 80048-TC; 80061-TC; 80076-TC; 81001; 82310-TC; 82607-TC; 82728-TC; 82962-TC; 83540-TC; 83735-TC; 84100-TC; 84443-TC; 85025-TC; 87081-TC; 97112-TC; 97116-TC; 97530-TC; C9803; G0480

== ENCOUNTER 2022-07-07 04:11 | Emergency (ER) | payer OTHER ==
[~2022-07-07] VITALS: Ht 149.9 cm; Wt 67.6 kg
[~2022-07-07 04:11] MED LIST changes: +BUSP10TA3 PO; +DICL100G34 TP; +GABA-532 PO; +IBUP-1953 PO; +ONDA4TAB11 PO; +RISP0.5T65 PO; +SERT100T PO
--- NOTE | 2022-07-07 04:45 | NUR ---
BIBS FROM HOME CC OF SUICIDAL THOUGHTS BY DRINKING PILLS TO KILL HERSELF, +AUDITORY HALLUCINATION TELLING HER TO KILL HERSELF. PT REQUESTING PSYCH EVAL AND TEMPORARY PSYCH PLACEMENT. PATIENT IS AAOX4, ABLE TO MAKE NEEDS KNOWN. CHANGED INTO HOSPITAL GOWN. PLACED COMFORTABLY IN BED. VITALS CHECKED.
--- NOTE | 2022-07-07 04:53 | NUR ---
URINE SPECIMEN SENT TO LAB
--- NOTE | 2022-07-07 05:11 | NUR ---
COVID SWAB DONE AND SENT TO LAB
--- NOTE | 2022-07-07 05:19 | NUR ---
PHARMACY CLERK AT PT'S BEDSIDE
[2022-07-07 05:35] LABS: BASOPHILS % (AUTO) 0.9 % (0.0-2.0); EOSINOPHILS % (AUTO) 3.3 % (0.0-6.0); HEMATOCRIT 34 % (33-45); HEMOGLOBIN 11.3 g/dL (11.5-14.8); LYMPHOCYTES # (AUTO) 1.6 K/uL (0.8-4.8); MEAN CORPUSCULAR HGB CONC 33 g/dl (31.0-36.0); MEAN CORPUSCULAR VOLUME 94 fL (82-100); MONOCYTES # (AUTO) 0.4 K/uL (0.1-1.30); NEUTROPHILS # (AUTO) 1.5 K/uL (1.8-8.9); NEUTROPHILS % (AUTO) 39.8 % (43.0-81.0); PLATELET COUNT (AUTO) 357 K/uL (150-450); RED BLOOD CELL COUNT(AUTO) 3.61 MIL/uL (4.0-5.2); WHITE BLOOD COUNT (AUTO) 3.7 K/uL (4.3-11.0)
[2022-07-07 05:46] LABS: CALCIUM, SERUM 9.6 mg/dL (8.5-10.1); CARBON DIOXIDE 26 mmol/L (21-32); CHLORIDE 105 mmol/L (98-107); CREATININE 0.7 mg/dL (0.6-1.3); GLUCOSE 88 mg/dL (74-106); POTASSIUM 3.3 mmol/L (3.5-5.1); SODIUM SERUM 142 mmol/L (136-145); UREA NITROGEN, BLOOD 17 mg/dL (7-18)
[2022-07-07 05:51] LABS: ALANINE AMINOTRANSFERASE 31 U/L (12-78); ALKALINE PHOSPHATASE 82 U/L (46-116); ASPARTATE AMINOTRANSFERASE 21 U/L (15-37); BILIRUBIN,DIRECT 0.1 mg/dL (0.0-0.2); BILIRUBIN,TOTAL 0.5 mg/dL (0.2-1.0); TOTAL PROTEIN, SERUM 7.8 g/dL (6.4-8.2)
[2022-07-07 05:53] LABS: ALCOHOL, BLOOD < 3 mg/dL (0-0)
[2022-07-07 06:00] LABS: BILIRUBIN,URINE NEGATIVE (NEGATIVE); COLOR,URINE YELLOW (YELLOW); LEUKOCYTE ESTERASE ,URINE NEGATIVE (NEGATIVE); NITRITE, URINE NEGATIVE (NEGATIVE); PROTEIN,URINE NEGATIVE (NEGATIVE); UGLUCOSE NEGATIVE (NEGATIVE); UROBILINOGEN,URINE 0.2 EU/dL (0.2)
--- NOTE | 2022-07-07 12:10 | NUR ---
PT SLEEPING, EASILY AROUSABLE, PROVIDED W LUNCH TRAY AT BEDSIDE. STABLE VITALS.
--- NOTE | 2022-07-07 14:45 | NUR ---
DAUGHTER BELLA LEFT CONTACT NUMBER. [phone]
[2022-07-07] MEDS ORDERED: IBUPROFEN 600 MG TABLET ONE (21:46)
[2022-07-07] MEDS ORDERED: IBUPROFEN 600 MG TABLET PO ONE (22:00)
--- NOTE | 2022-07-07 22:48 | NUR ---
MALORIE FROM CRISIS TEAM PAGED FOR PT TODD
--- NOTE | 2022-07-07 23:01 | NUR ---
MALORIE CRISIS TEAM WILL COME TO EVALUATE PT AFTER 8AM WITH SCOTTY BROWN.
--- NOTE | 2022-07-08 | NUR ---
FAXED CLINICALS TO [facility]
--- NOTE | 2022-07-08 08:27 | NUR ---
MOVE SHEET SUBMITTED.
--- NOTE | 2022-07-08 09:43 | NUR ---
GOT BED 212-A ADMITTING INFORMED.
--- NOTE | 2022-07-08 10:01 | NUR ---
Report given to nurse Esperanza for tawanda
--- NOTE | 2022-07-08 10:35 | NUR ---
KENY Consult: KENY met with pt. Pt appeared to be alert and oriented x3 (self,place,situation). Pt was cooperative with this brief writer. KENY assessed pt with Yaw Castañeda director who was present. Pt does not meet criteria to be transferred to [facility]. Pt denied visual/auditory hallucinations. Pt denied suicidal or homicidal ideation. KENY reminded pt that this brief writer had found her a facility when she was at the [facility] unit in June 2022 and had left AMA from the facility. KENY encouraged pt to continue to take her medications at home and to follow up with her psychiatrist. KENY notified pt's daughter Tomasa ([phone]) of discharge. KENY encouraged daughter to follow up with pt's telegraph service clerk as they have follow up appointments for pt, per intake. KENY gave pt resources to [facility] located at [address] [place] [id number]; ([phone]) to follow up if needed. DC PLAN: Pt will return back home with daughter Tomasa ([phone]) located at [address] [place] [address]; ([phone]). Daughter confirmed she will picking machine operator helper pt at 12:30PM. KENY notified ER staff.
--- NOTE | 2022-07-08 13:04 | NUR ---
PT MEDICALLY CLEARED AND WAS CLEARED BY CRISIS TEAM. PT WAS PICKED UP BY DAUGHTER, STABLE CONDITION.
[2022-07-08 13:06] VITALS: BP 135/86
== END 2022-07-08 13:06 | disposition home or self-care (01) ==
LOC: ER 04:17
DX: R45.851 Suicidal ideations (principal); F32.A Depression, unspecified; F41.9 Anxiety disorder, unspecified; Z98.890 Other specified postprocedural states; Z79.899 Other long term (current) drug therapy; Z20.822 Contact with and (suspected) exposure to COVID-19
CPT/HCPCS: 99285; 85025; 80048; 80076; 81003; 36415; 87426; 80143; 80320; 80307; C9803; G0480

== ENCOUNTER 2022-07-15 19:17 | Emergency (ER) | payer OTHER ==
[~2022-07-15] VITALS: Ht 149.9 cm; Wt 67.6 kg
--- NOTE | 2022-07-15 20:31 | NUR ---
BIBDAUGHTER FROM HOME C/O SI, PARANOIA & HEARING VOICES. -PLAN. VOLUNTARY PSYCH ADMIT. PT A/OX4. TOLERATING R/A WELL WITH NO RESP DISTRESS. PT IN GOWN, BELONGINGS COLLECTED, AND WANDED BY SECURITY. SAFETY MEASURES IN PLACE.
--- NOTE | 2022-07-15 20:32 | NUR ---
COVID ANTIGEN SWAB COLLECTED AND SENT TO LAB
--- NOTE | 2022-07-15 20:46 | NUR ---
URINE COLLECTED AND SENT TO LAB
[2022-07-15 20:53] LABS: BASOPHILS % (AUTO) 0.6 % (0.0-2.0); HEMATOCRIT 35 % (33-45); HEMOGLOBIN 11.2 g/dL (11.5-14.8); LYMPHOCYTES # (AUTO) 1.9 K/uL (0.8-4.8); LYMPHOCYTES % (AUTO) 43.2 % (20.0-44.0); MEAN CORPUSCULAR HGB CONC 32 g/dl (31.0-36.0); MEAN CORPUSCULAR VOLUME 95 fL (82-100); MONOCYTES # (AUTO) 0.4 K/uL (0.1-1.30); MONOCYTES % (AUTO) 9.1 % (2.0-12.0); NEUTROPHILS % (AUTO) 45.1 % (43.0-81.0); PLATELET COUNT (AUTO) 232 K/uL (150-450); RED BLOOD CELL COUNT(AUTO) 3.67 MIL/uL (4.0-5.2); WHITE BLOOD COUNT (AUTO) 4.4 K/uL (4.3-11.0)
--- NOTE | 2022-07-15 20:56 | NUR ---
LASER SYSTEMS ENGINEER AT PT'S BEDSIDE
[2022-07-15 21:11] LABS: CALCIUM, SERUM 9.9 mg/dL (8.5-10.1); CARBON DIOXIDE 29 mmol/L (21-32); CHLORIDE 109 mmol/L (98-107); CREATININE 0.9 mg/dL (0.6-1.3); GLUCOSE 92 mg/dL (74-106); POTASSIUM 3.8 mmol/L (3.5-5.1); SODIUM SERUM 145 mmol/L (136-145); UREA NITROGEN, BLOOD 22 mg/dL (7-18)
[2022-07-15 21:17] LABS: ALANINE AMINOTRANSFERASE 32 U/L (12-78); ALBUMIN 3.8 g/dL (3.4-5.0); ALKALINE PHOSPHATASE 91 U/L (46-116); ASPARTATE AMINOTRANSFERASE 26 U/L (15-37); BILIRUBIN,DIRECT 0.1 mg/dL (0.0-0.2); BILIRUBIN,TOTAL 0.2 mg/dL (0.2-1.0); TOTAL PROTEIN, SERUM 7.6 g/dL (6.4-8.2)
--- NOTE | 2022-07-15 21:24 | NUR ---
ASA/BELLA [phone]
[2022-07-15 21:25] LABS: BILIRUBIN,URINE NEGATIVE (NEGATIVE); COLOR,URINE YELLOW (YELLOW); LEUKOCYTE ESTERASE ,URINE NEGATIVE (NEGATIVE); NITRITE, URINE NEGATIVE (NEGATIVE); PROTEIN,URINE NEGATIVE (NEGATIVE); UGLUCOSE NEGATIVE (NEGATIVE); UROBILINOGEN,URINE 0.2 EU/dL (0.2)
[2022-07-15] MEDS ORDERED: SERTRALINE HCL 50 MG TABLET PO STA (21:26)
[2022-07-15] MEDS ORDERED: risperiDONE 0.25 MG TABLET PO ONE ×2 (21:30→21:46)
[2022-07-15 21:42] LABS: ALCOHOL, BLOOD < 3 mg/dL (0-0)
[2022-07-15] MEDS ORDERED: SERTRALINE HCL 50 MG TABLET ONE (21:47)
--- NOTE | 2022-07-15 21:55 | NUR ---
CALLED MATEUS SALINAS FOR PSYCH EVAL
--- NOTE | 2022-07-15 22:38 | NUR ---
MATEUS SALINAS CRISIS TEAM IN ER DEPT FOR VASUAL
--- NOTE | 2022-07-15 22:40 | NUR ---
MATEUS SALINAS AT [facility] SIDE
[2022-07-16] MEDS ORDERED: GABAPENTIN 100 MG CAPSULE PO ONE
[2022-07-16] MEDS ORDERED: GABAPENTIN 100 MG CAPSULE ONE (00:04)
--- NOTE | 2022-07-16 01:25 | NUR ---
PT IS ACCEPTED AT [facility] UNDER CARE OF DR. QUIROZ. GOING TO RM: 215A. [facility] ETA: 45-60 MIN
[2022-07-16 01:38] VITALS: BP 149/80
--- NOTE | 2022-07-16 02:07 | NUR ---
[facility] AT PT'S BEDSIDE TO TRANSFER PT TO [facility]. REPORT GIVEN TO [facility] EMT
--- NOTE | 2022-07-16 02:18 | NUR ---
TRANSFERRED TO [facility] IN STABLE CONDITION. BELONGINGS PICKED UP
== END 2022-07-16 02:39 ==
LOC: ER 19:19
DX: R45.851 Suicidal ideations (principal); R44.0 Auditory hallucinations; F32.A Depression, unspecified; F41.9 Anxiety disorder, unspecified; Z79.899 Other long term (current) drug therapy; Z20.822 Contact with and (suspected) exposure to COVID-19
CPT/HCPCS: 99285; 85025; 80048; 80076; 81003; 36415; 87426; 80143; 80320; 80307; C9803; G0480

== ENCOUNTER 2022-11-20 15:35 | Emergency (ER) | payer MEDICARE, OTHER ==
[~2022-11-20] VITALS: Ht 167.6 cm; Wt 63.5 kg
[~2022-11-20 15:35] MED LIST changes: +DICL100G34 TOP; -DICL100G34 TP
[2022-11-20 15:46] VITALS: TEMP 98
[2022-11-20 16:21] LABS: BASOPHILS % (AUTO) 0.7 % (0.0-2.0); EOSINOPHILS # (AUTO) 0.1 K/uL (0.0-0.7); EOSINOPHILS % (AUTO) 3.7 % (0.0-6.0); HEMATOCRIT 32 % (33-45); HEMOGLOBIN 10.8 g/dL (11.5-14.8); LYMPHOCYTES # (AUTO) 1.6 K/uL (0.8-4.8); LYMPHOCYTES % (AUTO) 40.3 % (20.0-44.0); MEAN CORPUSCULAR HEMOGLOBIN 32 PG (26.0-33.0); MEAN CORPUSCULAR HGB CONC 34 g/dl (31.0-36.0); MEAN CORPUSCULAR VOLUME 94 fL (82-100); MONOCYTES # (AUTO) 0.4 K/uL (0.1-1.30); MONOCYTES % (AUTO) 9.5 % (2.0-12.0); NEUTROPHILS # (AUTO) 1.9 K/uL (1.8-8.9); NEUTROPHILS % (AUTO) 45.8 % (43.0-81.0); PLATELET COUNT (AUTO) 214 K/uL (150-450); RED BLOOD CELL COUNT(AUTO) 3.43 MIL/uL (4.0-5.2); WHITE BLOOD COUNT (AUTO) 4.1 K/uL (4.3-11.0)
[2022-11-20] MEDS ORDERED: KETOROLAC TROMETHAMINE INJ 30 MG/ML VIAL IV ONE (16:30)
[2022-11-20] MEDS ORDERED: METOCLOPRAMIDE HCL 10 MG/2 ML VIAL IV ONE (16:30)
[2022-11-20] MEDS ORDERED: IV NS 0.9% 1,000 ML BAG IV ONE (16:30)
[2022-11-20] MEDS ORDERED: diphenhydrAMINE HCL 50 MG/ML VIAL IV ONE (16:30)
[2022-11-20 16:33] LABS: APPEARANCE,URINE CLEAR (CLEAR); BILIRUBIN,URINE NEGATIVE (NEGATIVE); BLOOD, URINE NEGATIVE Ery/uL (NEGATIVE); COLOR,URINE YELLOW (YELLOW); KETONES,URINE 1+ mg/dL (NEGATIVE); LEUKOCYTE ESTERASE ,URINE NEGATIVE (NEGATIVE); NITRITE, URINE NEGATIVE (NEGATIVE); PROTEIN,URINE NEGATIVE (NEGATIVE); UGLUCOSE NEGATIVE (NEGATIVE); UROBILINOGEN,URINE 0.2 EU/dL (0.2)
[2022-11-20 16:34] LABS: AMPHETAMINE, URINE NEGATIVE (NEGATIVE); BENZODIAZEPINE, URINE NEGATIVE (NEGATIVE); CANNABINOID, URINE NEGATIVE (NEGATIVE); COCCAINE, URINE NEGATIVE (NEGATIVE); OPIATE, URINE NEGATIVE (NEGATIVE); PHENCYCLIDINE SCREEN,URINE NEGATIVE (NEGATIVE)
[2022-11-20 16:34] LABS: ALANINE AMINOTRANSFERASE 37 U/L (12-78); ALBUMIN 3.6 g/dL (3.4-5.0); ALCOHOL, BLOOD < 3 mg/dL (0-10); ALKALINE PHOSPHATASE 76 U/L (46-116); ASPARTATE AMINOTRANSFERASE 28 U/L (15-37); BILIRUBIN,DIRECT 0.1 mg/dL (0.0-0.2); BILIRUBIN,TOTAL 0.3 mg/dL (0.2-1.0); CALCIUM, SERUM 9.3 mg/dL (8.5-10.1); CARBON DIOXIDE 23 mmol/L (21-32); CHLORIDE 107 mmol/L (98-107); CREATININE 0.8 mg/dL (0.6-1.3); GLUCOSE 84 mg/dL (74-106); POTASSIUM 3.9 mmol/L (3.5-5.1); SODIUM SERUM 139 mmol/L (136-145); UREA NITROGEN, BLOOD 21 mg/dL (7-18)
[2022-11-20] MEDS ORDERED: diphenhydrAMINE HCL 50 MG/ML VIAL ONE (16:36)
[2022-11-20] MEDS ORDERED: KETOROLAC TROMETHAMINE INJ 30 MG/ML VIAL ONE (16:37)
[2022-11-20] MEDS ORDERED: METOCLOPRAMIDE HCL 10 MG/2 ML VIAL ONE (16:37)
[2022-11-20 16:38] LABS: BARBITURATE, URINE POSITIVE (NEGATIVE)
[2022-11-20 16:39] LABS: ACETAMINOPHEN 0 ug/ml (10-30); SALICYLATE 1.2 mg/dL (2.8-20.0)
[2022-11-20 16:43] LABS: ADD URINE CULTURE NO; BACTERIA,URINE None seen /HPF (None Seen); RBC,URINE NONE SEEN /HPF (0-2); WBC,URINE NONE SEEN /HPF (0-3)
[2022-11-20] MEDS ORDERED: GABAPENTIN 100 MG CAPSULE PO SCH (17:00)
[2022-11-20] MEDS ORDERED: HYDROCODONE/APAP 5/325MG TABLET PO PRN (17:00)
[2022-11-20] MEDS ORDERED: TRIAMCINOLONE 0.025% ACETONIDE 60 ML BOTTLE TP SCH (17:00)
[2022-11-20] MEDS ORDERED: IBUPROFEN 400 MG TABLET PO PRN (17:00)
[2022-11-20] MEDS ORDERED: DICLOFENAC TOPICAL 100 GM TUBE TP PRN (17:00)
[2022-11-20] MEDS ORDERED: ONDANSETRON 4 MG TAB.RAPDIS PO PRN (17:00)
[2022-11-20] MEDS ORDERED: RISP0.2515 PO (17:01)
[2022-11-20] MEDS ORDERED: CYAN100T44 PO (17:01)
[2022-11-20 20:53] VITALS: BP 120/68; O2SAT 97
[2022-11-21] MEDS ORDERED: ENSURE ENLIVE CHOC 237 ML CAN PO SCH (08:00)
== END 2022-11-20 22:00 ==
LOC: ER 15:56
DX: R45.851 Suicidal ideations (principal); R44.0 Auditory hallucinations; F32.A Depression, unspecified; F41.9 Anxiety disorder, unspecified; Z20.822 Contact with and (suspected) exposure to COVID-19; Z79.899 Other long term (current) drug therapy; Z98.890 Other specified postprocedural states; Z88.1 Allergy status to other antibiotic agents
CPT/HCPCS: 99285; 96374; 96361; 96375; 85025; 80048; 80076; 81001; 36415; 87426; 80143; 80320; 80307; J1200; J2765; J1885; J7030; C9803; G0480

== ENCOUNTER 2023-03-14 23:34 | Inpatient (IN) | payer MEDICARE, OTHER ==
[~2023-03-14] VITALS: Ht 149.9 cm; Wt 67.6 kg
[~2023-03-14 23:34] MED LIST changes: -BUTA1CAP58 PO; +CYAN100T44 PO; -ONDA4TAB11 PO; +RISP0.2515 PO; -RISP0.5T65 PO; -TRIA60LO7 TP
[2023-03-15 01:26] LABS: BASOPHILS % (AUTO) 0.9 % (0.0-2.0); EOSINOPHILS # (AUTO) 0.1 K/uL (0.0-0.7); EOSINOPHILS % (AUTO) 2.1 % (0.0-6.0); HEMATOCRIT 31 % (33-45); HEMOGLOBIN 10.4 g/dL (11.5-14.8); LYMPHOCYTES # (AUTO) 1.6 K/uL (0.8-4.8); LYMPHOCYTES % (AUTO) 38.7 % (20.0-44.0); MEAN CORPUSCULAR HEMOGLOBIN 32 PG (26.0-33.0); MEAN CORPUSCULAR HGB CONC 34 g/dl (31.0-36.0); MEAN CORPUSCULAR VOLUME 95 fL (82-100); MONOCYTES # (AUTO) 0.4 K/uL (0.1-1.30); MONOCYTES % (AUTO) 9.5 % (2.0-12.0); NEUTROPHILS # (AUTO) 2.1 K/uL (1.8-8.9); NEUTROPHILS % (AUTO) 48.8 % (43.0-81.0); PLATELET COUNT (AUTO) 243 K/uL (150-450); RED BLOOD CELL COUNT(AUTO) 3.27 MIL/uL (4.0-5.2); RED CELL DISTRIBUTION WIDTH 15.3 % (11.5-15.0); WHITE BLOOD COUNT (AUTO) 4.2 K/uL (4.3-11.0)
[2023-03-15 01:27] LABS: APPEARANCE,URINE CLEAR (CLEAR); BILIRUBIN,URINE NEGATIVE (NEGATIVE); BLOOD, URINE NEGATIVE Ery/uL (NEGATIVE); COLOR,URINE YELLOW (YELLOW); KETONES,URINE TRACE mg/dL (NEGATIVE); LEUKOCYTE ESTERASE ,URINE NEGATIVE (NEGATIVE); NITRITE, URINE NEGATIVE (NEGATIVE); PH,URINE 5.5 (5.0-8.0); PROTEIN,URINE NEGATIVE (NEGATIVE); UGLUCOSE NEGATIVE (NEGATIVE); UROBILINOGEN,URINE 0.2 EU/dL (0.2)
[2023-03-15 01:28] LABS: ADD URINE CULTURE NO; BACTERIA,URINE Rare /HPF (None Seen); RBC,URINE 0-2 /HPF (0-2); SQUAMOUS EPITHELIAL CELL,UR Few /HPF (None Seen); WBC,URINE 0-2 /HPF (0-3)
[2023-03-15 01:43] LABS: CALCIUM, SERUM 9.5 mg/dL (8.5-10.1); CARBON DIOXIDE 28 mmol/L (21-32); CHLORIDE 104 mmol/L (98-107); CREATININE 0.7 mg/dL (0.6-1.3); GLUCOSE 118 mg/dL (74-106); POTASSIUM 4.1 mmol/L (3.5-5.1); SODIUM SERUM 139 mmol/L (136-145); UREA NITROGEN, BLOOD 21 mg/dL (7-18)
[2023-03-15 01:48] LABS: ALANINE AMINOTRANSFERASE 22 U/L (12-78); ALBUMIN 3.6 g/dL (3.4-5.0); ALCOHOL, BLOOD < 3 mg/dL (0-10); ALKALINE PHOSPHATASE 87 U/L (46-116); ASPARTATE AMINOTRANSFERASE 18 U/L (15-37); BILIRUBIN,DIRECT 0.1 mg/dL (0.0-0.2); BILIRUBIN,TOTAL 0.2 mg/dL (0.2-1.0); TOTAL PROTEIN, SERUM 7.4 g/dL (6.4-8.2)
[2023-03-15 01:48] LABS: AMPHETAMINE, URINE NEGATIVE (NEGATIVE); BENZODIAZEPINE, URINE NEGATIVE (NEGATIVE); CANNABINOID, URINE NEGATIVE (NEGATIVE); COCCAINE, URINE NEGATIVE (NEGATIVE); OPIATE, URINE NEGATIVE (NEGATIVE); PHENCYCLIDINE SCREEN,URINE NEGATIVE (NEGATIVE)
[2023-03-15 01:50] LABS: BARBITURATE, URINE POSITIVE (NEGATIVE)
[2023-03-15 01:50] LABS: ACETAMINOPHEN <10 ug/ml (10-30); SALICYLATE 0.8 mg/dL (2.8-20.0)
[2023-03-15] MEDS ORDERED: DICLOFENAC TOPICAL 100 GM TUBE TP PRN (02:30)
[2023-03-15] MEDS ORDERED: MAG HYDROX/AL HYDROX/SIMETH 30 ML UDC PO PRN (04:30)
[2023-03-15] MEDS ORDERED: TEMAZEPAM 7.5 MG CAPSULE PO PRN (04:30)
[2023-03-15] MEDS ORDERED: MAGNESIUM HYDROXIDE 30 ML UDC PO PRN (04:30)
[2023-03-15] MEDS: BLOOD SUGAR DIAGNOSTIC 1 EACH STRIP IN ONE (05:10)
[2023-03-15 06:35] VITALS: BP 106/66; TEMP 97.9; O2SAT 99
[2023-03-15 08:00] VITALS: BP 142/72; TEMP 98; O2SAT 100
[2023-03-15] MEDS ORDERED: GABAPENTIN 100 MG CAPSULE PO SCH (09:00)
[2023-03-15] MEDS: CYANOCOBALAMIN 100 MCG TABLET PO SCH (09:22)
[2023-03-15] MEDS: SERTRALINE HCL 50 MG TABLET PO SCH (11:08)
[2023-03-15] MEDS: GABAPENTIN 100 MG CAPSULE PO SCH (13:16)
[2023-03-15 16:00] VITALS: BP 118/57; TEMP 98.6; O2SAT 97
[2023-03-15 20:00] VITALS: BP 142/71; TEMP 98.1; O2SAT 98
[2023-03-15] MEDS: QUETIAPINE FUMARATE 100 MG TABLET PO SCH (21:50)
[2023-03-16 07:18] LABS: BASOPHILS % (AUTO) 0.6 % (0.0-2.0); EOSINOPHILS # (AUTO) 0.1 K/uL (0.0-0.7); EOSINOPHILS % (AUTO) 3.4 % (0.0-6.0); HEMATOCRIT 30 % (33-45); HEMOGLOBIN 9.8 g/dL (11.5-14.8); LYMPHOCYTES # (AUTO) 1.6 K/uL (0.8-4.8); LYMPHOCYTES % (AUTO) 53.9 % (20.0-44.0); MEAN CORPUSCULAR HEMOGLOBIN 32 PG (26.0-33.0); MEAN CORPUSCULAR HGB CONC 33 g/dl (31.0-36.0); MEAN CORPUSCULAR VOLUME 95 fL (82-100); MONOCYTES # (AUTO) 0.4 K/uL (0.1-1.30); MONOCYTES % (AUTO) 12.1 % (2.0-12.0); NEUTROPHILS # (AUTO) 0.9 K/uL (1.8-8.9); PLATELET COUNT (AUTO) 217 K/uL (150-450); RED BLOOD CELL COUNT(AUTO) 3.11 MIL/uL (4.0-5.2); RED CELL DISTRIBUTION WIDTH 15.2 % (11.5-15.0)
[2023-03-16 07:44] LABS: CALCIUM, SERUM 9.2 mg/dL (8.5-10.1); CREATININE 0.8 mg/dL (0.6-1.3); POTASSIUM 3.9 mmol/L (3.5-5.1)
[2023-03-16 08:00] VITALS: BP 123/80; TEMP 98.4; O2SAT 99
[2023-03-16 16:00] VITALS: BP 122/72; TEMP 98.2; O2SAT 97
[2023-03-16 21:28] VITALS: BP 129/78; TEMP 98.1; O2SAT 98
[2023-03-17 08:00] VITALS: BP 140/76; TEMP 98.1; O2SAT 100
[2023-03-17 16:00] VITALS: BP 127/54; TEMP 97.9; O2SAT 97
[2023-03-17 20:02] VITALS: BP 109/71; TEMP 98.4; O2SAT 100
[2023-03-18 08:00] VITALS: BP 130/62; TEMP 97.9; O2SAT 99
[2023-03-18 15:40] LABS: BASOPHILS % (AUTO) 0.7 % (0.0-2.0); EOSINOPHILS # (AUTO) 0.1 K/uL (0.0-0.7); EOSINOPHILS % (AUTO) 2.7 % (0.0-6.0); HEMATOCRIT 30 % (33-45); HEMOGLOBIN 9.9 g/dL (11.5-14.8); LYMPHOCYTES # (AUTO) 1.3 K/uL (0.8-4.8); LYMPHOCYTES % (AUTO) 35.3 % (20.0-44.0); MEAN CORPUSCULAR HEMOGLOBIN 32 PG (26.0-33.0); MEAN CORPUSCULAR HGB CONC 34 g/dl (31.0-36.0); MEAN CORPUSCULAR VOLUME 95 fL (82-100); MONOCYTES # (AUTO) 0.3 K/uL (0.1-1.30); MONOCYTES % (AUTO) 8.6 % (2.0-12.0); NEUTROPHILS % (AUTO) 52.7 % (43.0-81.0); PLATELET COUNT (AUTO) 214 K/uL (150-450); RED BLOOD CELL COUNT(AUTO) 3.11 MIL/uL (4.0-5.2); RED CELL DISTRIBUTION WIDTH 14.9 % (11.5-15.0); WHITE BLOOD COUNT (AUTO) 3.8 K/uL (4.3-11.0)
[2023-03-18 16:00] VITALS: BP 128/59; TEMP 97.8; O2SAT 100
[2023-03-18 16:09] LABS: FERRITIN 52 ng/mL (8-388)
[2023-03-18 16:46] LABS: IRON, SERUM 54 ug/dl (50-175); TOTAL IRON BINDING CAPACITY 261 ug/dl (250-450)
[2023-03-18 17:10] LABS: RHEUMATOID FACTOR SCREEN NEGATIVE (NEGATIVE)
[2023-03-18 21:10] VITALS: BP 143/74; TEMP 98.2; O2SAT 98
[2023-03-19 08:00] VITALS: BP 141/83; TEMP 97.8; O2SAT 98
[2023-03-19 10:07] LABS: *ANA ANTI-CENTROMERE B AB <0.2 AI (0.0-0.9); *ANA ANTI-DNA(DS) AB, QN <1 IU/mL (0-9); *ANA ANTI-JO-1 <0.2 AI (0.0-0.9); *ANA ANTICHROMATIN ANTIBODY <0.2 AI (0.0-0.9); *ANA RNP ANTIBODIES <0.2 AI (0.0-0.9); *ANA SJOGREN'S ANTI-SS-A <0.2 AI (0.0-0.9); *ANA SJOGREN'S ANTI-SS-B <0.2 AI (0.0-0.9); *ANAANTI-SCLERODERMA-70 AB <0.2 AI (0.0-0.9); *ANASMITH AB <0.2 AI (0.0-0.9); FREE KAPPA LT CHAINS SERUM 16.1 mg/L (3.3-19.4); KAPPA/LAMBDA RATIO SERUM 1.46 (0.26-1.65)
[2023-03-19 11:09] LABS: FOLIC ACID 12.8 ng/mL (>3.0)
[2023-03-19] MEDS: TRIHEXYPHENIDYL HCL 2 MG TABLET PO SCH (12:01)
[2023-03-19 12:10] LABS: HEPATITIS B SURFACE AB Reactive (.); IMMUNOGLOBULIN A, SERUM 114 mg/dL (87-352); IMMUNOGLOBULIN G, SERUM 953 mg/dL (586-1602); IMMUNOGLOBULIN M, SERUM 56 mg/dL (26-217)
[2023-03-19] MEDS: ACETAMINOPHEN 325 MG TABLET PO PRN (15:41)
[2023-03-19 16:00] VITALS: BP 124/73; TEMP 98.1; O2SAT 100
[2023-03-19 20:00] VITALS: BP 116/81; TEMP 97.9; O2SAT 100
[2023-03-19] MEDS: QUETIAPINE FUMARATE 100 MG TABLET PO SCH (21:19)
[2023-03-20 04:14] VITALS: BP 116/81; TEMP 97.9; O2SAT 100
[2023-03-20 05:08] LABS: *SPE A/G RATIO 1.2 (0.7-1.7); *SPE ALBUMIN 3.2 g/dL (2.9-4.4); *SPE ALPHA-1-GLOBULIN 0.2 g/dL (0.0-0.4); *SPE ALPHA-2-GLOBULIN 0.7 g/dL (0.4-1.0); *SPE BETA GLOBULIN 0.9 g/dL (0.7-1.3); *SPE GLOBULIN, TOTAL 2.7 g/dL (2.2-3.9); *SPE M-SPIKE Not Observed g/dL (Not Observed); *SPE PROTEIN TOTAL 5.9 g/dL (6.0-8.5); *SPEGAMMA GLOBULIN 0.9 g/dL (0.4-1.8)
[2023-03-20 07:57] LABS: EOSINOPHILS # (AUTO) 0.1 K/uL (0.0-0.7); EOSINOPHILS % (AUTO) 2.8 % (0.0-6.0); HEMATOCRIT 29 % (33-45); HEMOGLOBIN 9.5 g/dL (11.5-14.8); LYMPHOCYTES # (AUTO) 1.4 K/uL (0.8-4.8); MEAN CORPUSCULAR HEMOGLOBIN 32 PG (26.0-33.0); MEAN CORPUSCULAR HGB CONC 33 g/dl (31.0-36.0); MEAN CORPUSCULAR VOLUME 97 fL (82-100); MONOCYTES # (AUTO) 0.5 K/uL (0.1-1.30); MONOCYTES % (AUTO) 14.4 % (2.0-12.0); NEUTROPHILS # (AUTO) 1.4 K/uL (1.8-8.9); NEUTROPHILS % (AUTO) 39.8 % (43.0-81.0); PLATELET COUNT (AUTO) 187 K/uL (150-450); RED BLOOD CELL COUNT(AUTO) 2.95 MIL/uL (4.0-5.2); RED CELL DISTRIBUTION WIDTH 15.7 % (11.5-15.0); WHITE BLOOD COUNT (AUTO) 3.4 K/uL (4.3-11.0)
[2023-03-20 08:00] VITALS: BP 123/74; TEMP 98.8; O2SAT 100
[2023-03-20 16:00] VITALS: BP 137/64; TEMP 98.2; O2SAT 98
[2023-03-20 20:00] VITALS: BP 145/76; TEMP 98.2; O2SAT 95
[2023-03-21 08:00] VITALS: BP 143/79; TEMP 97.6; O2SAT 98
[2023-03-21 16:00] VITALS: BP 138/81; TEMP 97.9; O2SAT 97
[2023-03-21 20:00] VITALS: BP 124/65; TEMP 97.9; O2SAT 100
[2023-03-22 07:32] LABS: BASOPHILS % (AUTO) 0.8 % (0.0-2.0); EOSINOPHILS # (AUTO) 0.1 K/uL (0.0-0.7); EOSINOPHILS % (AUTO) 2.9 % (0.0-6.0); HEMATOCRIT 29 % (33-45); HEMOGLOBIN 9.8 g/dL (11.5-14.8); LYMPHOCYTES # (AUTO) 1.7 K/uL (0.8-4.8); LYMPHOCYTES % (AUTO) 45.6 % (20.0-44.0); MEAN CORPUSCULAR HEMOGLOBIN 32 PG (26.0-33.0); MEAN CORPUSCULAR HGB CONC 34 g/dl (31.0-36.0); MEAN CORPUSCULAR VOLUME 95 fL (82-100); MONOCYTES # (AUTO) 0.4 K/uL (0.1-1.30); MONOCYTES % (AUTO) 11.8 % (2.0-12.0); NEUTROPHILS # (AUTO) 1.4 K/uL (1.8-8.9); NEUTROPHILS % (AUTO) 38.9 % (43.0-81.0); PLATELET COUNT (AUTO) 205 K/uL (150-450); RED BLOOD CELL COUNT(AUTO) 3.06 MIL/uL (4.0-5.2); RED CELL DISTRIBUTION WIDTH 15.2 % (11.5-15.0); WHITE BLOOD COUNT (AUTO) 3.7 K/uL (4.3-11.0)
[2023-03-22 08:00] VITALS: BP 129/69; TEMP 98; O2SAT 100
[2023-03-22 08:51] LABS: CALCIUM, SERUM 8.9 mg/dL (8.5-10.1); CREATININE 0.7 mg/dL (0.6-1.3); POTASSIUM 4.3 mmol/L (3.5-5.1)
[2023-03-22 16:00] VITALS: BP 154/83; TEMP 98; O2SAT 100
[2023-03-22 20:00] VITALS: BP 133/72; TEMP 97.8; O2SAT 99
[2023-03-22] MEDS: QUETIAPINE FUMARATE 100 MG TABLET PO SCH (21:32)
[2023-03-23 08:00] VITALS: BP 120/93; TEMP 97.8; O2SAT 100
[2023-03-23 08:16] LABS: BASOPHILS % (AUTO) 1.2 % (0.0-2.0); EOSINOPHILS # (AUTO) 0.1 K/uL (0.0-0.7); EOSINOPHILS % (AUTO) 3.4 % (0.0-6.0); HEMATOCRIT 28 % (33-45); HEMOGLOBIN 9.4 g/dL (11.5-14.8); LYMPHOCYTES # (AUTO) 1.5 K/uL (0.8-4.8); LYMPHOCYTES % (AUTO) 39.7 % (20.0-44.0); MEAN CORPUSCULAR HEMOGLOBIN 32 PG (26.0-33.0); MEAN CORPUSCULAR HGB CONC 33 g/dl (31.0-36.0); MEAN CORPUSCULAR VOLUME 97 fL (82-100); MONOCYTES # (AUTO) 0.5 K/uL (0.1-1.30); MONOCYTES % (AUTO) 13.1 % (2.0-12.0); NEUTROPHILS # (AUTO) 1.6 K/uL (1.8-8.9); NEUTROPHILS % (AUTO) 42.6 % (43.0-81.0); PLATELET COUNT (AUTO) 179 K/uL (150-450); RED BLOOD CELL COUNT(AUTO) 2.94 MIL/uL (4.0-5.2); RED CELL DISTRIBUTION WIDTH 15.6 % (11.5-15.0); WHITE BLOOD COUNT (AUTO) 3.8 K/uL (4.3-11.0)
[2023-03-23] MEDS: SERTRALINE HCL 50 MG TABLET PO SCH (08:52)
[2023-03-23 16:00] VITALS: BP 140/82; TEMP 97.8; O2SAT 96
[2023-03-23 20:59] VITALS: BP 151/68; TEMP 97.8; O2SAT 98
[2023-03-24 08:00] VITALS: BP 140/83; TEMP 98; O2SAT 98
[2023-03-24 08:12] LABS: EOSINOPHILS # (AUTO) 0.1 K/uL (0.0-0.7); EOSINOPHILS % (AUTO) 3.4 % (0.0-6.0); HEMATOCRIT 27 % (33-45); HEMOGLOBIN 9.2 g/dL (11.5-14.8); LYMPHOCYTES # (AUTO) 1.6 K/uL (0.8-4.8); LYMPHOCYTES % (AUTO) 44.9 % (20.0-44.0); MEAN CORPUSCULAR HEMOGLOBIN 32 PG (26.0-33.0); MEAN CORPUSCULAR HGB CONC 34 g/dl (31.0-36.0); MEAN CORPUSCULAR VOLUME 96 fL (82-100); MONOCYTES # (AUTO) 0.5 K/uL (0.1-1.30); NEUTROPHILS # (AUTO) 1.3 K/uL (1.8-8.9); NEUTROPHILS % (AUTO) 36.7 % (43.0-81.0); PLATELET COUNT (AUTO) 176 K/uL (150-450); RED BLOOD CELL COUNT(AUTO) 2.84 MIL/uL (4.0-5.2); RED CELL DISTRIBUTION WIDTH 15.5 % (11.5-15.0); WHITE BLOOD COUNT (AUTO) 3.5 K/uL (4.3-11.0)
[2023-03-24] MEDS: GABAPENTIN 100 MG CAPSULE PO SCH (13:31)
[2023-03-24 16:19] VITALS: BP 135/81; TEMP 97.9; O2SAT 100
[2023-03-24 21:47] VITALS: BP_SYST 139; BP_SYST 156; BP_DIAS 89; TEMP 97.9; O2SAT 100
[2023-03-25 08:00] VITALS: BP 163/90; TEMP 97.8; O2SAT 98
[2023-03-25 08:00] LABS: BASOPHILS % (AUTO) 0.4 % (0.0-2.0); EOSINOPHILS # (AUTO) 0.1 K/uL (0.0-0.7); EOSINOPHILS % (AUTO) 2.7 % (0.0-6.0); HEMATOCRIT 27 % (33-45); HEMOGLOBIN 9.1 g/dL (11.5-14.8); LYMPHOCYTES # (AUTO) 1.5 K/uL (0.8-4.8); LYMPHOCYTES % (AUTO) 41.9 % (20.0-44.0); MEAN CORPUSCULAR HEMOGLOBIN 32 PG (26.0-33.0); MEAN CORPUSCULAR HGB CONC 33 g/dl (31.0-36.0); MEAN CORPUSCULAR VOLUME 96 fL (82-100); MONOCYTES # (AUTO) 0.5 K/uL (0.1-1.30); MONOCYTES % (AUTO) 13.8 % (2.0-12.0); NEUTROPHILS # (AUTO) 1.5 K/uL (1.8-8.9); NEUTROPHILS % (AUTO) 41.2 % (43.0-81.0); PLATELET COUNT (AUTO) 178 K/uL (150-450); RED BLOOD CELL COUNT(AUTO) 2.84 MIL/uL (4.0-5.2); RED CELL DISTRIBUTION WIDTH 15.2 % (11.5-15.0); WHITE BLOOD COUNT (AUTO) 3.6 K/uL (4.3-11.0)
[2023-03-25] MEDS: TRIHEXYPHENIDYL HCL 2 MG TABLET PO SCH (13:12)
[2023-03-25 16:17] VITALS: BP 141/86; TEMP 98.6; O2SAT 99
[2023-03-25 20:17] VITALS: BP 131/71; TEMP 98.2; O2SAT 100
[2023-03-26 07:26] LABS: BASOPHILS % (AUTO) 0.7 % (0.0-2.0); EOSINOPHILS # (AUTO) 0.1 K/uL (0.0-0.7); EOSINOPHILS % (AUTO) 2.5 % (0.0-6.0); HEMATOCRIT 27 % (33-45); HEMOGLOBIN 9.4 g/dL (11.5-14.8); LYMPHOCYTES # (AUTO) 1.6 K/uL (0.8-4.8); LYMPHOCYTES % (AUTO) 38.9 % (20.0-44.0); MEAN CORPUSCULAR HEMOGLOBIN 33 PG (26.0-33.0); MEAN CORPUSCULAR HGB CONC 34 g/dl (31.0-36.0); MEAN CORPUSCULAR VOLUME 95 fL (82-100); MONOCYTES # (AUTO) 0.5 K/uL (0.1-1.30); MONOCYTES % (AUTO) 12.4 % (2.0-12.0); NEUTROPHILS # (AUTO) 1.9 K/uL (1.8-8.9); NEUTROPHILS % (AUTO) 45.5 % (43.0-81.0); PLATELET COUNT (AUTO) 186 K/uL (150-450); RED BLOOD CELL COUNT(AUTO) 2.88 MIL/uL (4.0-5.2); RED CELL DISTRIBUTION WIDTH 15.2 % (11.5-15.0); WHITE BLOOD COUNT (AUTO) 4.1 K/uL (4.3-11.0)
[2023-03-26 07:54] LABS: CALCIUM, SERUM 9.2 mg/dL (8.5-10.1); MAGNESIUM 2.2 mg/dL (1.8-2.4); PHOSPHORUS 4.5 mg/dL (2.5-4.9)
[2023-03-26 08:00] VITALS: BP 130/79; TEMP 98.1; O2SAT 96
[2023-03-26 16:00] VITALS: BP 146/76; TEMP 97.9; O2SAT 98
[2023-03-26 20:33] VITALS: BP 140/72; TEMP 98.4; O2SAT 98
[2023-03-26] MEDS: QUETIAPINE FUMARATE 100 MG TABLET PO SCH (21:18)
[2023-03-27 07:44] LABS: BASOPHILS % (AUTO) 0.6 % (0.0-2.0); EOSINOPHILS # (AUTO) 0.1 K/uL (0.0-0.7); EOSINOPHILS % (AUTO) 2.4 % (0.0-6.0); HEMATOCRIT 30 % (33-45); LYMPHOCYTES # (AUTO) 1.6 K/uL (0.8-4.8); LYMPHOCYTES % (AUTO) 40.7 % (20.0-44.0); MEAN CORPUSCULAR HEMOGLOBIN 32 PG (26.0-33.0); MEAN CORPUSCULAR HGB CONC 34 g/dl (31.0-36.0); MEAN CORPUSCULAR VOLUME 96 fL (82-100); MONOCYTES # (AUTO) 0.5 K/uL (0.1-1.30); MONOCYTES % (AUTO) 12.5 % (2.0-12.0); NEUTROPHILS # (AUTO) 1.8 K/uL (1.8-8.9); NEUTROPHILS % (AUTO) 43.8 % (43.0-81.0); PLATELET COUNT (AUTO) 210 K/uL (150-450); RED CELL DISTRIBUTION WIDTH 15.2 % (11.5-15.0)
[2023-03-27 08:00] VITALS: BP 143/82; TEMP 98.1; O2SAT 97
[2023-03-27 08:52] LABS: INR 0.98 (0.91-1.10); PROTHROMBIN TIME 10.4 SECS (9.2-11.1)
[2023-03-27] MEDS ORDERED: BUPIVACAINE 0.5 % PF 150 MG/30 ML VIAL ONE (09:37)
[2023-03-27] MEDS ORDERED: LIDOCAINE HCL/MPF 1% 30 ML VIAL IJ ONE (09:37)
[2023-03-27 16:00] VITALS: BP 151/73; TEMP 98.1; O2SAT 99
[2023-03-27 20:00] VITALS: BP 163/77; TEMP 97.9; O2SAT 100
[2023-03-27] MEDS: QUETIAPINE FUMARATE 100 MG TABLET PO SCH (21:48)
[2023-03-28 08:00] VITALS: BP 149/92; TEMP 98.2; O2SAT 100
[2023-03-28] MEDS: QUETIAPINE FUMARATE 25 MG TABLET PO SCH (10:33)
[2023-03-28 16:00] VITALS: BP 127/81; TEMP 97.7; O2SAT 95
[2023-03-29 08:00] VITALS: BP 144/80; TEMP 98; O2SAT 97
[2023-03-29 09:13] LABS: BASOPHILS % (AUTO) 0.4 % (0.0-2.0); EOSINOPHILS # (AUTO) 0.1 K/uL (0.0-0.7); EOSINOPHILS % (AUTO) 2.4 % (0.0-6.0); HEMATOCRIT 30 % (33-45); HEMOGLOBIN 10.5 g/dL (11.5-14.8); LYMPHOCYTES # (AUTO) 1.9 K/uL (0.8-4.8); LYMPHOCYTES % (AUTO) 45.5 % (20.0-44.0); MEAN CORPUSCULAR HEMOGLOBIN 33 PG (26.0-33.0); MEAN CORPUSCULAR HGB CONC 34 g/dl (31.0-36.0); MEAN CORPUSCULAR VOLUME 95 fL (82-100); MONOCYTES # (AUTO) 0.6 K/uL (0.1-1.30); NEUTROPHILS # (AUTO) 1.6 K/uL (1.8-8.9); NEUTROPHILS % (AUTO) 38.7 % (43.0-81.0); PLATELET COUNT (AUTO) 230 K/uL (150-450); RED CELL DISTRIBUTION WIDTH 15.5 % (11.5-15.0); WHITE BLOOD COUNT (AUTO) 4.2 K/uL (4.3-11.0)
[2023-03-29 09:24] LABS: CALCIUM, SERUM 9.5 mg/dL (8.5-10.1); CREATININE 0.9 mg/dL (0.6-1.3); POTASSIUM 3.8 mmol/L (3.5-5.1)
[2023-03-29] MEDS: LORAZEPAM 1 MG TABLET PO PRN (09:26)
[2023-03-29 11:23] VITALS: BP 131/76; TEMP 97.7; O2SAT 99
[2023-03-29 16:00] VITALS: BP 137/79; TEMP 98; O2SAT 99
[2023-03-29 20:00] VITALS: BP 140/75; TEMP 98.6; O2SAT 97
[2023-03-30 07:51] LABS: BASOPHILS % (AUTO) 0.5 % (0.0-2.0); EOSINOPHILS # (AUTO) 0.1 K/uL (0.0-0.7); EOSINOPHILS % (AUTO) 2.9 % (0.0-6.0); HEMATOCRIT 31 % (33-45); HEMOGLOBIN 10.7 g/dL (11.5-14.8); LYMPHOCYTES # (AUTO) 1.5 K/uL (0.8-4.8); LYMPHOCYTES % (AUTO) 43.6 % (20.0-44.0); MEAN CORPUSCULAR HEMOGLOBIN 33 PG (26.0-33.0); MEAN CORPUSCULAR HGB CONC 34 g/dl (31.0-36.0); MEAN CORPUSCULAR VOLUME 95 fL (82-100); MONOCYTES # (AUTO) 0.4 K/uL (0.1-1.30); MONOCYTES % (AUTO) 11.3 % (2.0-12.0); NEUTROPHILS # (AUTO) 1.4 K/uL (1.8-8.9); NEUTROPHILS % (AUTO) 41.7 % (43.0-81.0); PLATELET COUNT (AUTO) 251 K/uL (150-450); RED BLOOD CELL COUNT(AUTO) 3.28 MIL/uL (4.0-5.2); RED CELL DISTRIBUTION WIDTH 15.1 % (11.5-15.0); WHITE BLOOD COUNT (AUTO) 3.4 K/uL (4.3-11.0)
[2023-03-30 08:00] VITALS: BP 151/83; TEMP 98.6; O2SAT 98
[2023-03-30 08:18] LABS: CALCIUM, SERUM 9.8 mg/dL (8.5-10.1); CREATININE 0.7 mg/dL (0.6-1.3); POTASSIUM 3.9 mmol/L (3.5-5.1)
[2023-03-30 16:00] VITALS: BP 129/61; TEMP 98.8; O2SAT 98
[2023-03-30 20:48] VITALS: BP 144/75; TEMP 98.8; O2SAT 97
[2023-03-31 06:41] LABS: BASOPHILS % (AUTO) 0.6 % (0.0-2.0); EOSINOPHILS # (AUTO) 0.1 K/uL (0.0-0.7); EOSINOPHILS % (AUTO) 3.1 % (0.0-6.0); HEMATOCRIT 28 % (33-45); HEMOGLOBIN 9.6 g/dL (11.5-14.8); LYMPHOCYTES # (AUTO) 1.5 K/uL (0.8-4.8); LYMPHOCYTES % (AUTO) 45.2 % (20.0-44.0); MEAN CORPUSCULAR HEMOGLOBIN 33 PG (26.0-33.0); MEAN CORPUSCULAR HGB CONC 34 g/dl (31.0-36.0); MEAN CORPUSCULAR VOLUME 95 fL (82-100); MONOCYTES # (AUTO) 0.5 K/uL (0.1-1.30); NEUTROPHILS # (AUTO) 1.2 K/uL (1.8-8.9); NEUTROPHILS % (AUTO) 37.1 % (43.0-81.0); PLATELET COUNT (AUTO) 213 K/uL (150-450); RED BLOOD CELL COUNT(AUTO) 2.93 MIL/uL (4.0-5.2); RED CELL DISTRIBUTION WIDTH 15.4 % (11.5-15.0); WHITE BLOOD COUNT (AUTO) 3.3 K/uL (4.3-11.0)
[2023-03-31 07:10] LABS: CREATININE 0.6 mg/dL (0.6-1.3); POTASSIUM 3.7 mmol/L (3.5-5.1)
[2023-03-31 08:00] VITALS: BP 124/80; TEMP 97.9; O2SAT 100
[2023-03-31 16:00] VITALS: BP 141/63; TEMP 97.9; O2SAT 99
[2023-03-31 20:27] VITALS: BP 125/96; TEMP 98.3; O2SAT 98
[2023-03-31] MEDS: QUETIAPINE FUMARATE 100 MG TABLET PO SCH (21:11)
[2023-04-01 07:21] LABS: BASOPHILS % (AUTO) 0.5 % (0.0-2.0); EOSINOPHILS # (AUTO) 0.1 K/uL (0.0-0.7); EOSINOPHILS % (AUTO) 2.3 % (0.0-6.0); HEMATOCRIT 28 % (33-45); HEMOGLOBIN 9.6 g/dL (11.5-14.8); LYMPHOCYTES # (AUTO) 1.7 K/uL (0.8-4.8); LYMPHOCYTES % (AUTO) 41.1 % (20.0-44.0); MEAN CORPUSCULAR HEMOGLOBIN 33 PG (26.0-33.0); MEAN CORPUSCULAR HGB CONC 34 g/dl (31.0-36.0); MEAN CORPUSCULAR VOLUME 96 fL (82-100); MONOCYTES # (AUTO) 0.5 K/uL (0.1-1.30); MONOCYTES % (AUTO) 12.9 % (2.0-12.0); NEUTROPHILS # (AUTO) 1.8 K/uL (1.8-8.9); NEUTROPHILS % (AUTO) 43.2 % (43.0-81.0); PLATELET COUNT (AUTO) 219 K/uL (150-450); RED BLOOD CELL COUNT(AUTO) 2.93 MIL/uL (4.0-5.2); RED CELL DISTRIBUTION WIDTH 15.2 % (11.5-15.0); WHITE BLOOD COUNT (AUTO) 4.1 K/uL (4.3-11.0)
[2023-04-01 08:00] VITALS: BP 135/74; TEMP 97.9; O2SAT 97
== END 2023-04-01 13:30 | DRG 876 ==
LOC: ER 23:50 → GPS 03-15 02:39
PROVIDERS: ADMIT Psychiatry & Neurology Psychiatry; ATTEND Internal Medicine
PROC: 0JBH0ZZ Excision of Left Lower Arm Subcutaneous Tissue and Fascia, Open Approach (ICD-10-PCS; principal; 2023-03-27)
DX: F32.3 Major depressive disorder, single episode, severe with psychotic features (principal); D61.818 Other pancytopenia; F29 Unspecified psychosis not due to a substance or known physiological condition; Z87.820 Personal history of traumatic brain injury; Z20.822 Contact with and (suspected) exposure to COVID-19; Z79.899 Other long term (current) drug therapy; E78.5 Hyperlipidemia, unspecified; F41.9 Anxiety disorder, unspecified; F43.10 Post-traumatic stress disorder, unspecified; Z91.51 Personal history of suicidal behavior; Z98.891 History of uterine scar from previous surgery; D17.9 Benign lipomatous neoplasm, unspecified; Z91.018 Allergy to other foods; D64.9 Anemia, unspecified; M19.90 Unspecified osteoarthritis, unspecified site; D72.819 Decreased white blood cell count, unspecified; Z73.6 Limitation of activities due to disability; G89.29 Other chronic pain; Z87.828 Personal history of other (healed) physical injury and trauma; D72.820 Lymphocytosis (symptomatic); D72.821 Monocytosis (symptomatic); E66.9 Obesity, unspecified; Z68.30 Body mass index [BMI] 30.0-30.9, adult
CPT/HCPCS: 36415; 71045-TC; 76700-TC; 80048-TC; 80061-TC; 80076-TC; 81001; 82607-TC; 82728-TC; 82784; 82962-TC; 83540-TC; 83615-TC; 83735-TC; 84100-TC; 84155; 84165; 85025-TC; 85045-TC; 85610-TC; 86225; 86235; 86334; 86431-TC; 86706; 86803; 86850-TC; 86880-TC; 87340; 93971-TC; G0480; J3490

== ENCOUNTER → 2023-03-27 | Day surgery (SDC) | payer MEDICARE, MEDICAID ==
[~2023-03-27] MED LIST changes: -BUSP10TA3 PO; +LIDOCAINE 1%-EPI 1:100,000 20 ML VIAL ONE; -RISP0.2515 PO; -SERT100T PO; +hydrALAZINE HCL IV 20 MG VIAL ONE
== END | disposition home or self-care (01) ==
LOC: DS 11:11
PROVIDERS: ATTEND Nurse Practitioner Acute Care
DX: D17.22 Benign lipomatous neoplasm of skin and subcutaneous tissue of left arm (principal)
CPT/HCPCS: 25071; 88304; J0690; J2704; J0360; J3490 ×2; 71045-TC

== ENCOUNTER 2023-05-29 19:35 | Inpatient (IN) | payer MEDICARE, OTHER ==
[~2023-05-29] VITALS: Ht 154.9 cm; Wt 72.6 kg
[~2023-05-29 19:35] MED LIST changes: -LIDOCAINE 1%-EPI 1:100,000 20 ML VIAL ONE; -hydrALAZINE HCL IV 20 MG VIAL ONE
[2023-05-29 20:27] LABS: BASOPHILS # (AUTO) 0.1 K/uL (0.0-0.2); BASOPHILS % (AUTO) 1.3 % (0.0-2.0); EOSINOPHILS # (AUTO) 0.1 K/uL (0.0-0.7); EOSINOPHILS % (AUTO) 2.5 % (0.0-6.0); HEMATOCRIT 30 % (33-45); HEMOGLOBIN 10.1 g/dL (11.5-14.8); LYMPHOCYTES # (AUTO) 2.1 K/uL (0.8-4.8); LYMPHOCYTES % (AUTO) 48.7 % (20.0-44.0); MEAN CORPUSCULAR HEMOGLOBIN 31 PG (26.0-33.0); MEAN CORPUSCULAR HGB CONC 33 g/dl (31.0-36.0); MEAN CORPUSCULAR VOLUME 93 fL (82-100); MONOCYTES # (AUTO) 0.4 K/uL (0.1-1.30); MONOCYTES % (AUTO) 9.3 % (2.0-12.0); NEUTROPHILS # (AUTO) 1.6 K/uL (1.8-8.9); NEUTROPHILS % (AUTO) 38.2 % (43.0-81.0); PLATELET COUNT (AUTO) 219 K/uL (150-450); RED BLOOD CELL COUNT(AUTO) 3.23 MIL/uL (4.0-5.2); RED CELL DISTRIBUTION WIDTH 14.5 % (11.5-15.0); WHITE BLOOD COUNT (AUTO) 4.3 K/uL (4.3-11.0)
[2023-05-29 20:28] LABS: CALCIUM, SERUM 9.1 mg/dL (8.5-10.1); CARBON DIOXIDE 25 mmol/L (21-32); CHLORIDE 108 mmol/L (98-107); CREATININE 0.8 mg/dL (0.6-1.3); GLUCOSE 132 mg/dL (74-106); POTASSIUM 3.7 mmol/L (3.5-5.1); SODIUM SERUM 141 mmol/L (136-145); UREA NITROGEN, BLOOD 17 mg/dL (7-18)
[2023-05-29 21:24] LABS: APPEARANCE,URINE CLEAR (CLEAR); BILIRUBIN,URINE NEGATIVE (NEGATIVE); BLOOD, URINE NEGATIVE Ery/uL (NEGATIVE); COLOR,URINE YELLOW (YELLOW); KETONES,URINE TRACE mg/dL (NEGATIVE); LEUKOCYTE ESTERASE ,URINE NEGATIVE (NEGATIVE); NITRITE, URINE NEGATIVE (NEGATIVE); PH,URINE 6.5 (5.0-8.0); PROTEIN,URINE NEGATIVE (NEGATIVE); UGLUCOSE NEGATIVE (NEGATIVE); UROBILINOGEN,URINE 0.2 EU/dL (0.2)
[2023-05-29 21:50] LABS: ALANINE AMINOTRANSFERASE 31 U/L (12-78); ALBUMIN 3.3 g/dL (3.4-5.0); ALCOHOL, BLOOD < 3 mg/dL (0-10); ALKALINE PHOSPHATASE 87 U/L (46-116); ASPARTATE AMINOTRANSFERASE 24 U/L (15-37); BILIRUBIN,DIRECT 0.1 mg/dL (0.0-0.2); BILIRUBIN,TOTAL 0.2 mg/dL (0.2-1.0); TOTAL PROTEIN, SERUM 6.9 g/dL (6.4-8.2)
[2023-05-29 21:51] LABS: SALICYLATE 1.5 mg/dL (2.8-20.0)
[2023-05-29 21:52] LABS: ACETAMINOPHEN <10 ug/ml (10-30)
[2023-05-29 22:07] LABS: AMPHETAMINE, URINE NEGATIVE (NEGATIVE); BARBITURATE, URINE NEGATIVE (NEGATIVE); BENZODIAZEPINE, URINE NEGATIVE (NEGATIVE); CANNABINOID, URINE NEGATIVE (NEGATIVE); COCCAINE, URINE NEGATIVE (NEGATIVE); OPIATE, URINE NEGATIVE (NEGATIVE); PHENCYCLIDINE SCREEN,URINE NEGATIVE (NEGATIVE)
[2023-05-30] MEDS ORDERED: QUET200T PO (00:54)
[2023-05-30] MEDS ORDERED: TRIH2TAB3 PO (00:54)
[2023-05-30] MEDS ORDERED: MAGNESIUM HYDROXIDE 30 ML UDC PO PRN (01:30)
[2023-05-30] MEDS: BLOOD SUGAR DIAGNOSTIC 1 EACH STRIP IN ONE (01:53)
[2023-05-30 02:10] VITALS: BP 125/70; TEMP 98; O2SAT 98
[2023-05-30] MEDS ORDERED: FERR325T23 PO (02:16)
[2023-05-30 08:00] VITALS: BP 159/96; TEMP 97.3; O2SAT 98
[2023-05-30] MEDS: CYANOCOBALAMIN 100 MCG TABLET PO SCH (08:21)
[2023-05-30] MEDS: GABAPENTIN 100 MG CAPSULE PO SCH (08:21)
[2023-05-30] MEDS: TRIHEXYPHENIDYL HCL 2 MG TABLET PO SCH (08:22)
[2023-05-30] MEDS ORDERED: ACET325T53 PO (09:28)
[2023-05-30] MEDS ORDERED: MAG30ORA PO (09:28)
[2023-05-30] MEDS ORDERED: MAGN400O6 PO (09:28)
[2023-05-30] MEDS: risperiDONE 0.25 MG TABLET PO SCH (10:18)
[2023-05-30 16:00] VITALS: BP 145/67; TEMP 98.6; O2SAT 98
[2023-05-30 20:00] VITALS: BP 151/91; TEMP 98.2; O2SAT 97
[2023-05-30] MEDS: DIVALPROEX SODIUM 125 MG CAP.SPRINK PO SCH (21:05)
[2023-05-30] MEDS: ACETAMINOPHEN 325 MG TABLET PO PRN (22:22)
[2023-05-31 07:19] LABS: BASOPHILS % (AUTO) 0.4 % (0.0-2.0); EOSINOPHILS # (AUTO) 0.1 K/uL (0.0-0.7); HEMATOCRIT 29 % (33-45); HEMOGLOBIN 9.7 g/dL (11.5-14.8); LYMPHOCYTES % (AUTO) 51.9 % (20.0-44.0); MEAN CORPUSCULAR HEMOGLOBIN 32 PG (26.0-33.0); MEAN CORPUSCULAR HGB CONC 34 g/dl (31.0-36.0); MEAN CORPUSCULAR VOLUME 94 fL (82-100); MONOCYTES # (AUTO) 0.5 K/uL (0.1-1.30); NEUTROPHILS # (AUTO) 1.3 K/uL (1.8-8.9); NEUTROPHILS % (AUTO) 32.7 % (43.0-81.0); PLATELET COUNT (AUTO) 196 K/uL (150-450); RED BLOOD CELL COUNT(AUTO) 3.07 MIL/uL (4.0-5.2); RED CELL DISTRIBUTION WIDTH 14.6 % (11.5-15.0); WHITE BLOOD COUNT (AUTO) 3.9 K/uL (4.3-11.0)
[2023-05-31 07:48] LABS: CALCIUM, SERUM 8.6 mg/dL (8.5-10.1); CREATININE 0.7 mg/dL (0.6-1.3); POTASSIUM 3.7 mmol/L (3.5-5.1)
[2023-05-31 08:00] VITALS: BP 126/72; TEMP 97.7; O2SAT 100
[2023-05-31] MEDS: ESCITALOPRAM OXALATE (10 MG) 10 MG TABLET PO SCH (10:25)
[2023-05-31 16:00] VITALS: BP 150/60; TEMP 98.4; O2SAT 98
[2023-05-31 21:53] VITALS: BP 128/71; TEMP 97.6; O2SAT 96
[2023-06-01 10:52] VITALS: BP 159/89; TEMP 98.7; O2SAT 99
[2023-06-01] MEDS: LORAZEPAM 1 MG TABLET PO PRN (13:19)
[2023-06-01 20:00] VITALS: BP 154/89; TEMP 98.7; O2SAT 100
[2023-06-02] MEDS: risperiDONE 0.25 MG TABLET PO SCH (11:28)
[2023-06-02 20:55] VITALS: BP 125/65; TEMP 97.5; O2SAT 100
[2023-06-03 08:00] VITALS: BP 123/76; TEMP 97.9; O2SAT 100
[2023-06-03 15:30] VITALS: BP 139/72; TEMP 98.2; O2SAT 95
[2023-06-03] MEDS: DIVALPROEX SODIUM 125 MG CAP.SPRINK PO SCH (20:27)
[2023-06-03 21:55] VITALS: BP 148/82; TEMP 98.2; O2SAT 99
[2023-06-04 08:00] VITALS: BP 126/74; TEMP 98.7; O2SAT 98
[2023-06-04 16:00] VITALS: BP_SYST 157; TEMP 98.1; O2SAT 98
[2023-06-04] MEDS: risperiDONE 1 MG TABLET PO SCH (17:43)
[2023-06-04 20:00] VITALS: BP 115/64; TEMP 97.7; O2SAT 98
[2023-06-04 20:46] VITALS: BP 115/67; TEMP 97.7; O2SAT 98
[2023-06-04] MEDS: ZOLPIDEM TARTRATE 5 MG TABLET PO PRN (21:01)
[2023-06-05 08:00] VITALS: BP 107/79; TEMP 97.9; O2SAT 98
[2023-06-05 16:00] VITALS: BP 118/82; TEMP 98; O2SAT 98
[2023-06-05 20:00] VITALS: BP 148/79; TEMP 98.4; O2SAT 98
[2023-06-06 08:00] VITALS: BP 141/89; TEMP 98.2; O2SAT 98
[2023-06-06 16:00] VITALS: BP 121/79; TEMP 98.3; O2SAT 96
[2023-06-06 20:00] VITALS: BP 124/62; TEMP 98.4; O2SAT 98
[2023-06-06] MEDS ORDERED: IBUPROFEN 400 MG TABLET PO PRN (20:15)
[2023-06-06] MEDS ORDERED: BUTALB/APAP/CAFFEINE 1 EACH TABLET PO ONE (20:30)
[2023-06-06] MEDS: TRAMADOL HCL 50 MG TABLET PO PRN (21:15)
[2023-06-07 08:00] VITALS: BP 136/71; TEMP 97.5; O2SAT 100
[2023-06-07 16:00] VITALS: BP 121/65; TEMP 98; O2SAT 99
[2023-06-07 20:41] VITALS: BP 115/74; TEMP 97.6; O2SAT 99
[2023-06-08 08:00] VITALS: BP 140/84; TEMP 98; O2SAT 100
[2023-06-08] MEDS: DIVALPROEX SODIUM 125 MG CAP.SPRINK PO SCH (15:05)
[2023-06-08 16:00] VITALS: BP 103/70; TEMP 97.9; O2SAT 96
[2023-06-08 22:16] VITALS: BP 129/78; TEMP 98.1; O2SAT 98
[2023-06-09 08:00] VITALS: BP 147/84; TEMP 98.7; O2SAT 97
[2023-06-09] MEDS: risperiDONE 1 MG TABLET PO SCH (12:17)
[2023-06-09 16:00] VITALS: BP 144/73; TEMP 97.7; O2SAT 98
[2023-06-09 20:28] VITALS: BP 135/70; TEMP 97.9; O2SAT 99
[2023-06-10 08:00] VITALS: BP 109/63; TEMP 97.9; O2SAT 97
[2023-06-10 16:00] VITALS: BP 114/61; TEMP 97.8; O2SAT 99
[2023-06-10] MEDS: risperiDONE 1 MG TABLET PO SCH ×2 (16:12→21:48)
[2023-06-10 20:30] VITALS: BP 108/77; TEMP 98.2; O2SAT 95
[2023-06-10] MEDS: MAG HYDROX/AL HYDROX/SIMETH 30 ML UDC PO PRN (21:52)
[2023-06-11 08:00] VITALS: BP 118/67; TEMP 97.9; O2SAT 99
[2023-06-11 16:00] VITALS: BP 124/59; TEMP 97.8; O2SAT 97
[2023-06-12 08:00] VITALS: BP 161/86; TEMP 97.7; O2SAT 98
[2023-06-12 10:34] VITALS: BP 131/83
[2023-06-12 16:00] VITALS: BP 150/67; TEMP 97.4; O2SAT 100
[2023-06-12 20:00] VITALS: BP 126/60; TEMP 97.8; O2SAT 100
[2023-06-13 08:00] VITALS: BP 138/92; TEMP 97.9; O2SAT 97
== END 2023-06-13 15:15 | DRG 885 ==
LOC: ER 19:37 → GPS 22:43
PROVIDERS: ADMIT Psychiatry & Neurology Psychiatry
DX: F31.64 Bipolar disorder, current episode mixed, severe, with psychotic features (principal); E44.0 Moderate protein-calorie malnutrition; F29 Unspecified psychosis not due to a substance or known physiological condition; F43.10 Post-traumatic stress disorder, unspecified; F41.9 Anxiety disorder, unspecified; R41.9 Unspecified symptoms and signs involving cognitive functions and awareness; Z87.820 Personal history of traumatic brain injury; Z79.899 Other long term (current) drug therapy; Z91.51 Personal history of suicidal behavior; Z98.891 History of uterine scar from previous surgery; Z91.018 Allergy to other foods; Z73.6 Limitation of activities due to disability; R53.1 Weakness; R27.8 Other lack of coordination; Z91.81 History of falling; D64.9 Anemia, unspecified; G89.29 Other chronic pain; E78.5 Hyperlipidemia, unspecified; Z98.890 Other specified postprocedural states; Z86.018 Personal history of other benign neoplasm; E88.09 Other disorders of plasma-protein metabolism, not elsewhere classified; G62.9 Polyneuropathy, unspecified; E66.9 Obesity, unspecified; Z68.30 Body mass index [BMI] 30.0-30.9, adult
CPT/HCPCS: 36415; 80048-TC; 80061-TC; 80076-TC; 80164-TC; 85025-TC; 87081-TC; 97112-TC; 97116-TC; 97530-TC; G0480

== ENCOUNTER 2023-07-14 07:56 | Emergency (ER) | payer MEDICARE, OTHER ==
[~2023-07-14] VITALS: Ht 149.9 cm; Wt 72.1 kg
[~2023-07-14 07:56] MED LIST changes: +ACET325T53 PO; +FERR325T23 PO; +MAG30ORA PO; +MAGN400O6 PO; +TRIH2TAB3 PO
[2023-07-14 09:07] LABS: BASOPHILS % (AUTO) 0.1 % (0.0-2.0); EOSINOPHILS # (AUTO) 0.3 K/uL (0.0-0.7); EOSINOPHILS % (AUTO) 6.2 % (0.0-6.0); HEMATOCRIT 34 % (33-45); HEMOGLOBIN 11.5 g/dL (11.5-14.8); LYMPHOCYTES % (AUTO) 19.7 % (20.0-44.0); MEAN CORPUSCULAR HEMOGLOBIN 32 PG (26.0-33.0); MEAN CORPUSCULAR HGB CONC 34 g/dl (31.0-36.0); MEAN CORPUSCULAR VOLUME 94 fL (82-100); MONOCYTES # (AUTO) 0.6 K/uL (0.1-1.30); MONOCYTES % (AUTO) 12.1 % (2.0-12.0); NEUTROPHILS % (AUTO) 61.9 % (43.0-81.0); PLATELET COUNT (AUTO) 165 K/uL (150-450); RED BLOOD CELL COUNT(AUTO) 3.62 MIL/uL (4.0-5.2); RED CELL DISTRIBUTION WIDTH 15.4 % (11.5-15.0); WHITE BLOOD COUNT (AUTO) 4.9 K/uL (4.3-11.0)
[2023-07-14 09:28] LABS: ALANINE AMINOTRANSFERASE 18 U/L (12-78); ALBUMIN 3.1 g/dL (3.4-5.0); ALKALINE PHOSPHATASE 70 U/L (46-116); ASPARTATE AMINOTRANSFERASE 16 U/L (15-37); BILIRUBIN,DIRECT 0.1 mg/dL (0.0-0.2); BILIRUBIN,TOTAL 0.3 mg/dL (0.2-1.0); CALCIUM, SERUM 9.5 mg/dL (8.5-10.1); CARBON DIOXIDE 24 mmol/L (21-32); CHLORIDE 104 mmol/L (98-107); CREATININE 0.8 mg/dL (0.6-1.3); GLUCOSE 117 mg/dL (74-106); LIPASE 22 U/L (16-77); POTASSIUM 3.9 mmol/L (3.5-5.1); SODIUM SERUM 137 mmol/L (136-145); TOTAL PROTEIN, SERUM 6.6 g/dL (6.4-8.2); UREA NITROGEN, BLOOD 19 mg/dL (7-18)
[2023-07-14] MEDS: IV NS 0.9% 1,000 ML BAG IV ONE (09:48)
[2023-07-14] MEDS ORDERED: AMOX/CLAVULANATE 875 MG TABLET ONE (09:50)
[2023-07-14] MEDS: AMOX/CLAVULANATE 875 MG TABLET PO ONE (09:53)
[2023-07-14] MEDS ORDERED: AMOX-430 PO (10:17)
[2023-07-14 10:47] VITALS: BP 131/90; TEMP 98.2; O2SAT 99
== END 2023-07-14 10:48 | disposition home or self-care (01) ==
LOC: ER 08:00
DX: K52.9 Noninfective gastroenteritis and colitis, unspecified (principal); E78.5 Hyperlipidemia, unspecified; Z87.39 Personal history of other diseases of the musculoskeletal system and connective tissue; Z86.59 Personal history of other mental and behavioral disorders; Z91.018 Allergy to other foods
CPT/HCPCS: 99284; 74176; 96360; 93005; 85025; 80048; 83690; 80076; 36415; 84484; J7030

== ENCOUNTER 2024-03-11 13:10 | Inpatient (IN) | payer MEDICARE, OTHER ==
[~2024-03-11] VITALS: Ht 134.6 cm; Wt 58.5 kg
[~2024-03-11 13:10] MED LIST changes: +AMOX-430 PO
[2024-03-11 13:53] LABS: BASOPHILS % (AUTO) 0.6 % (0.0-2.0); HEMATOCRIT 29 % (33-45); HEMOGLOBIN 9.8 g/dL (11.5-14.8); LYMPHOCYTES # (AUTO) 1.1 K/uL (0.8-4.8); LYMPHOCYTES % (AUTO) 28.6 % (20.0-44.0); MEAN CORPUSCULAR HEMOGLOBIN 33 PG (26.0-33.0); MEAN CORPUSCULAR HGB CONC 34 g/dl (31.0-36.0); MEAN CORPUSCULAR VOLUME 95 fL (82-100); MONOCYTES # (AUTO) 0.5 K/uL (0.1-1.30); MONOCYTES % (AUTO) 14.4 % (2.0-12.0); NEUTROPHILS # (AUTO) 2.1 K/uL (1.8-8.9); NEUTROPHILS % (AUTO) 56.4 % (43.0-81.0); PLATELET COUNT (AUTO) 176 K/uL (150-450); RED BLOOD CELL COUNT(AUTO) 3.01 MIL/uL (4.0-5.2); RED CELL DISTRIBUTION WIDTH 14.9 % (11.5-15.0); WHITE BLOOD COUNT (AUTO) 3.7 K/uL (4.3-11.0)
[2024-03-11] MEDS ORDERED: QUET100T PO (14:00)
[2024-03-11] MEDS ORDERED: BUTA1CAP43 PO (14:00)
[2024-03-11] MEDS ORDERED: IBUP-1955 PO (14:00)
[2024-03-11] MEDS ORDERED: LURA80TA PO (14:00)
[2024-03-11] MEDS ORDERED: ARIP10TA57 PO (14:00)
[2024-03-11 14:09] LABS: CALCIUM, SERUM 8.9 mg/dL (8.5-10.1); CARBON DIOXIDE 26 mmol/L (21-32); CHLORIDE 105 mmol/L (98-107); CREATININE 0.9 mg/dL (0.6-1.3); GLUCOSE 145 mg/dL (74-106); POTASSIUM 3.7 mmol/L (3.5-5.1); SODIUM SERUM 142 mmol/L (136-145); UREA NITROGEN, BLOOD 22 mg/dL (7-18)
[2024-03-11 14:15] LABS: ALANINE AMINOTRANSFERASE 63 U/L (12-78); ALBUMIN 3.5 g/dL (3.4-5.0); ALKALINE PHOSPHATASE 68 U/L (46-116); ASPARTATE AMINOTRANSFERASE 69 U/L (15-37); BILIRUBIN,DIRECT 0.1 mg/dL (0.0-0.2); BILIRUBIN,TOTAL 0.3 mg/dL (0.2-1.0); TOTAL PROTEIN, SERUM 6.7 g/dL (6.4-8.2)
[2024-03-11] MEDS ORDERED: Z GUARD REMEDY 4 OZ OINT TP PRN (17:00)
[2024-03-11] MEDS ORDERED: ONDANSETRON HCL/PF 4 MG/2 ML VIAL IVP PRN (17:00)
[2024-03-11] MEDS: BUTALB/APAP/CAFFEINE 1 EACH TABLET PO ONE (17:00)
[2024-03-11] MEDS ORDERED: MAGNESIUM HYDROXIDE 30 ML UDC PO PRN (17:00)
[2024-03-11] MEDS ORDERED: FOLIC ACID 1 MG TABLET ONE (18:59)
[2024-03-11] MEDS ORDERED: QUETIAPINE FUMARATE 100 MG TABLET ONE (22:03)
[2024-03-11] MEDS: QUETIAPINE FUMARATE 100 MG TABLET PO SCH (22:04)
[2024-03-12] MEDS ORDERED: PANTOPRAZOLE 40 MG TABLET.DR PO ONE (07:57)
[2024-03-12] MEDS: PANTOPRAZOLE 40 MG TABLET.DR PO SCH (07:59)
[2024-03-12 08:23] LABS: CALCIUM, SERUM 9.2 mg/dL (8.5-10.1); CREATININE 0.8 mg/dL (0.6-1.3); MAGNESIUM 2.1 mg/dL (1.8-2.4); PHOSPHORUS 3.8 mg/dL (2.5-4.9); POTASSIUM 4.1 mmol/L (3.5-5.1)
[2024-03-12 08:31] LABS: BASOPHILS % (AUTO) 0.5 % (0.0-2.0); EOSINOPHILS % (AUTO) 0.3 % (0.0-6.0); HEMATOCRIT 28 % (33-45); HEMOGLOBIN 9.7 g/dL (11.5-14.8); MEAN CORPUSCULAR HEMOGLOBIN 33 PG (26.0-33.0); MEAN CORPUSCULAR HGB CONC 34 g/dl (31.0-36.0); MEAN CORPUSCULAR VOLUME 95 fL (82-100); MONOCYTES # (AUTO) 0.4 K/uL (0.1-1.30); MONOCYTES % (AUTO) 19.1 % (2.0-12.0); NEUTROPHILS # (AUTO) 0.8 K/uL (1.8-8.9); NEUTROPHILS % (AUTO) 36.1 % (43.0-81.0); PLATELET COUNT (AUTO) 166 K/uL (150-450); RED BLOOD CELL COUNT(AUTO) 2.95 MIL/uL (4.0-5.2); RED CELL DISTRIBUTION WIDTH 14.7 % (11.5-15.0); WHITE BLOOD COUNT (AUTO) 2.2 K/uL (4.3-11.0)
[2024-03-12 09:17] LABS: IRON, SERUM 21 ug/dl (50-175); TOTAL IRON BINDING CAPACITY 227 ug/dl (250-450)
[2024-03-12 09:29] LABS: THYROID STIMULATING HORMONE 3.13 uIU/mL (0.358-3.74)
[2024-03-12 09:32] LABS: FERRITIN 163 ng/mL (8-388)
[2024-03-12] MEDS: ARIPIPRAZOLE 5 MG TABLET PO SCH (10:53)
[2024-03-12 11:00] VITALS: BP 127/71; TEMP 98.9; O2SAT 98
[2024-03-12 12:00] VITALS: BP 127/71; TEMP 99.1; O2SAT 98
[2024-03-12 16:02] VITALS: BP_SYST 112; BP_SYST 121; BP_SYST 130; BP_DIAS 63; BP_DIAS 68; BP_DIAS 71
[2024-03-12 16:05] VITALS: BP 127/71; TEMP 98.9; O2SAT 98
[2024-03-12] MEDS: IV 1/2NS 1000 ML 1,000 ML IV PRN (16:22)
[2024-03-12 16:25] VITALS: BP 129/64; TEMP 99; O2SAT 100
[2024-03-12] MEDS: ACETAMINOPHEN 325 MG TABLET PO PRN (19:01)
[2024-03-12 20:00] VITALS: BP_SYST 129; BP_SYST 130; BP_SYST 132; BP_DIAS 65; BP_DIAS 68; BP_DIAS 72; TEMP 99; O2SAT 98
[2024-03-13 07:01] LABS: APPEARANCE,URINE CLOUDY (CLEAR); BILIRUBIN,URINE NEGATIVE (NEGATIVE); BLOOD, URINE NEGATIVE Ery/uL (NEGATIVE); COLOR,URINE YELLOW (YELLOW); KETONES,URINE TRACE mg/dL (NEGATIVE); LEUKOCYTE ESTERASE ,URINE NEGATIVE (NEGATIVE); NITRITE, URINE NEGATIVE (NEGATIVE); PROTEIN,URINE NEGATIVE (NEGATIVE); UGLUCOSE NEGATIVE (NEGATIVE); UROBILINOGEN,URINE 0.2 EU/dL (0.2)
[2024-03-13 08:00] VITALS: BP_SYST 135; BP_SYST 139; BP_DIAS 50; BP_DIAS 72; TEMP 98.2; TEMP 99; O2SAT 96; O2SAT 98
[2024-03-13 08:00] LABS: ADD URINE CULTURE NO; BACTERIA,URINE Rare /HPF (None Seen); RBC,URINE 0-2 /HPF (0-2); SQUAMOUS EPITHELIAL CELL,UR Few /HPF (None Seen); WBC,URINE 0-2 /HPF (0-3)
[2024-03-13 16:00] VITALS: BP 117/74; TEMP 99.1; O2SAT 95
[2024-03-13 20:00] VITALS: BP 140/78; TEMP 99.9; O2SAT 98
[2024-03-14 08:00] VITALS: BP 130/80; TEMP 99; O2SAT 99
[2024-03-14 16:00] VITALS: BP 155/91; TEMP 98.4; O2SAT 100
[2024-03-14 20:00] VITALS: BP 142/77; TEMP 98.6; O2SAT 97
[2024-03-15 07:56] LABS: CALCIUM, SERUM 8.3 mg/dL (8.5-10.1); CREATININE 0.8 mg/dL (0.6-1.3); MAGNESIUM 2.2 mg/dL (1.8-2.4); PHOSPHORUS 3.9 mg/dL (2.5-4.9)
[2024-03-15 07:57] LABS: BASOPHILS % (AUTO) 0.3 % (0.0-2.0); EOSINOPHILS % (AUTO) 1.5 % (0.0-6.0); HEMATOCRIT 28 % (33-45); HEMOGLOBIN 9.5 g/dL (11.5-14.8); LYMPHOCYTES # (AUTO) 1.5 K/uL (0.8-4.8); LYMPHOCYTES % (AUTO) 50.4 % (20.0-44.0); MEAN CORPUSCULAR HEMOGLOBIN 33 PG (26.0-33.0); MEAN CORPUSCULAR HGB CONC 34 g/dl (31.0-36.0); MEAN CORPUSCULAR VOLUME 95 fL (82-100); MONOCYTES # (AUTO) 0.5 K/uL (0.1-1.30); NEUTROPHILS # (AUTO) 0.9 K/uL (1.8-8.9); NEUTROPHILS % (AUTO) 31.8 % (43.0-81.0); PLATELET COUNT (AUTO) 199 K/uL (150-450); RED BLOOD CELL COUNT(AUTO) 2.91 MIL/uL (4.0-5.2); RED CELL DISTRIBUTION WIDTH 14.6 % (11.5-15.0); WHITE BLOOD COUNT (AUTO) 2.9 K/uL (4.3-11.0)
[2024-03-15 08:00] VITALS: BP 137/70; TEMP 98.6; O2SAT 100
[2024-03-15 16:00] VITALS: BP 153/70; TEMP 98.2; O2SAT 94
== END 2024-03-15 19:15 | disposition home or self-care (01) | DRG 74 ==
LOC: ER 13:20 → TRANSITION 18:22 → TELE 03-12 08:40 → MED 03-12 15:39
PROVIDERS: ADMIT Nurse Practitioner Family; ATTEND Student in an Organized Health Care Education/Training Program
DX: G90.89 Other disorders of autonomic nervous system (principal); R62.7 Adult failure to thrive; E86.0 Dehydration; R79.89 Other specified abnormal findings of blood chemistry; F25.0 Schizoaffective disorder, bipolar type; E78.5 Hyperlipidemia, unspecified; Z87.820 Personal history of traumatic brain injury; Z91.148 Patient's other noncompliance with medication regimen for other reason; Z91.51 Personal history of suicidal behavior; Y09 Assault by unspecified means; Y92.009 Unspecified place in unspecified non-institutional (private) residence as the place of occurrence of the external cause; G89.29 Other chronic pain; I10 Essential (primary) hypertension; F43.10 Post-traumatic stress disorder, unspecified; F41.9 Anxiety disorder, unspecified; D72.819 Decreased white blood cell count, unspecified; D64.9 Anemia, unspecified; G62.9 Polyneuropathy, unspecified; G47.00 Insomnia, unspecified; R27.8 Other lack of coordination; Z98.891 History of uterine scar from previous surgery; Z88.8 Allergy status to other drugs, medicaments and biological substances; Z91.018 Allergy to other foods; Z87.828 Personal history of other (healed) physical injury and trauma; Z79.899 Other long term (current) drug therapy; M19.90 Unspecified osteoarthritis, unspecified site; M25.511 Pain in right shoulder; R91.1 Solitary pulmonary nodule; F22 Delusional disorders; F32.A Depression, unspecified; F29 Unspecified psychosis not due to a substance or known physiological condition
CPT/HCPCS: 36415; 70450-TC; 71045-TC; 72125-TC; 80048-TC; 80076-TC; 81001; 82728-TC; 83540-TC; 83735-TC; 84100-TC; 84439-TC; 84443-TC; 84484-TC; 85025-TC; 86850-TC; 87081-TC; 93307-TC; A4223; G0378; J3490

== ENCOUNTER 2024-09-03 10:09 | Inpatient (IN) | payer MEDICARE, OTHER ==
[~2024-09-03] VITALS: Ht 149.9 cm; Wt 60.3 kg
[~2024-09-03 10:09] MED LIST changes: -ACET325T53 PO; -AMOX-430 PO; +ARIP10TA57 PO; +BUTA1CAP43 PO; -CYAN100T44 PO; -DICL100G34 TOP; -FERR325T23 PO; -GABA-532 PO; -IBUP-1953 PO; +IBUP-1955 PO; +LURA80TA PO; -MAG30ORA PO; -MAGN400O6 PO; +QUET100T PO; -TRIH2TAB3 PO
[2024-09-03 10:54] LABS: PLATELET COUNT (AUTO) 217 K/uL (150-450); RED BLOOD CELL COUNT(AUTO) 3.56 MIL/uL (4.0-5.2); RED CELL DISTRIBUTION WIDTH 14.8 % (11.5-15.0); WHITE BLOOD COUNT (AUTO) 3.0 K/uL (4.3-11.0)
[2024-09-03 11:03] LABS: CALCIUM, SERUM 9.4 mg/dL (8.5-10.1); CREATININE 0.7 mg/dL (0.6-1.3); SODIUM SERUM 139 mmol/L (136-145); UREA NITROGEN, BLOOD 22 mg/dL (7-18)
[2024-09-03] MEDS ORDERED: CT SWABBABLE VALVE TRANS SET 1 EA INFUS.SET MC ONE (11:13)
[2024-09-03] MEDS ORDERED: IOHEXOL-350 100 ML VIAL IV ONE (11:13)
[2024-09-03] MEDS ORDERED: IV NS 0.9% 250 ML IV ONE (11:13)
[2024-09-03 11:27] LABS: ASPARTATE AMINOTRANSFERASE 26 U/L (15-37); NT-PRO BNP 63 pg/mL (0-125); TOTAL PROTEIN, SERUM 7.3 g/dL (6.4-8.2)
[2024-09-03] MEDS ORDERED: ASPIRIN 325 MG TABLET ONE (12:34)
[2024-09-03] MEDS: ASPIRIN 325 MG TABLET PO SCH (12:37)
[2024-09-03] MEDS ORDERED: ACETAMINOPHEN 325 MG TABLET PO PRN (14:00)
[2024-09-03] MEDS ORDERED: hydrALAZINE HCL IV 20 MG VIAL IV PRN (14:00)
[2024-09-03] MEDS ORDERED: MORPHINE SULFATE INJ 2 MG/ML DISP.SYRIN IV PRN (14:00)
[2024-09-03] MEDS ORDERED: ONDANSETRON HCL/PF 4 MG/2 ML VIAL IVP PRN (14:00)
[2024-09-03] MEDS ORDERED: SLOW FE PO (14:01)
[2024-09-03] MEDS ORDERED: MULT-594 PO (14:01)
[2024-09-03 16:00] VITALS: BP 149/72; TEMP 98.2; O2SAT 99
[2024-09-03 17:00] VITALS: BP 149/72; TEMP 98.2; O2SAT 99
[2024-09-03 19:04] LABS: LDL 152 mg/dL (0-99)
[2024-09-03 19:53] LABS: APPEARANCE,URINE CLEAR (CLEAR); BLOOD, URINE NEGATIVE Ery/uL (NEGATIVE); LEUKOCYTE ESTERASE ,URINE NEGATIVE (NEGATIVE); NITRITE, URINE NEGATIVE (NEGATIVE); UGLUCOSE NEGATIVE (NEGATIVE)
[2024-09-03 20:00] VITALS: BP 135/85; TEMP 98.2; O2SAT 99
[2024-09-03 21:00] VITALS: BP 135/85; TEMP 98.2; O2SAT 99
[2024-09-03] MEDS: QUETIAPINE FUMARATE 100 MG TABLET PO SCH (21:21)
[2024-09-03] MEDS: ATORVASTATIN 40 MG TABLET PO SCH (21:22)
[2024-09-04 01:00] VITALS: BP 113/71; TEMP 97.3; O2SAT 99
[2024-09-04 05:00] VITALS: BP 118/70; TEMP 97.9; O2SAT 99
[2024-09-04 06:46] LABS: PLATELET COUNT (AUTO) 189 K/uL (150-450); RED BLOOD CELL COUNT(AUTO) 3.58 MIL/uL (4.0-5.2); RED CELL DISTRIBUTION WIDTH 14.7 % (11.5-15.0); WHITE BLOOD COUNT (AUTO) 3.1 K/uL (4.3-11.0)
[2024-09-04 07:15] LABS: ASPARTATE AMINOTRANSFERASE 17.0 U/L (15-37); CALCIUM, SERUM 8.9 mg/dL (8.5-10.1); CREATININE 0.6 mg/dL (0.6-1.3); PHOSPHORUS 4.5 mg/dL (2.5-4.9); SODIUM SERUM 142.0 mmol/L (136-145); TOTAL PROTEIN, SERUM 6.5 g/dL (6.4-8.2); UREA NITROGEN, BLOOD 22.0 mg/dL (7-18)
[2024-09-04 08:00] VITALS: BP 155/90; TEMP 97.5; O2SAT 98
[2024-09-04] MEDS: ASPIRIN EC 81 MG TABLET.DR PO SCH (08:28)
[2024-09-04] MEDS: ARIPIPRAZOLE 5 MG TABLET PO SCH (08:29)
[2024-09-04] MEDS ORDERED: ASPIRIN/ACETAMINOPHEN/CAFFEINE 1 EACH TABLET PO PRN (09:30)
[2024-09-04] MEDS: LORAZEPAM INJ 2 MG/ML VIAL IV PRN (10:25)
[2024-09-04] MEDS ORDERED: CYCLOBENZAPRINE 10 MG TABLET PO PRN (10:30)
[2024-09-04] MEDS ORDERED: IBUPROFEN 400 MG TABLET PO PRN (10:30)
[2024-09-04] MEDS ORDERED: ASPI-1420 PO (10:31)
[2024-09-04] MEDS ORDERED: Aspirin Ec PO (10:31)
[2024-09-04] MEDS ORDERED: ATOR40TA PO (10:31)
[2024-09-04 12:00] VITALS: BP 150/77; TEMP 97.5; O2SAT 98
[2024-09-04 16:00] VITALS: BP 132/70; TEMP 97.9; O2SAT 97
== END 2024-09-04 18:30 | disposition home or self-care (01) | DRG 125 ==
LOC: ER 10:15 → TELE1 11:22
PROVIDERS: ADMIT Internal Medicine; ATTEND Internal Medicine
DX: H53.8 Other visual disturbances (principal); G43.909 Migraine, unspecified, not intractable, without status migrainosus; F25.0 Schizoaffective disorder, bipolar type; I10 Essential (primary) hypertension; Z87.820 Personal history of traumatic brain injury; E78.5 Hyperlipidemia, unspecified; G62.9 Polyneuropathy, unspecified; F43.10 Post-traumatic stress disorder, unspecified; Z91.51 Personal history of suicidal behavior; Z98.891 History of uterine scar from previous surgery; Z88.8 Allergy status to other drugs, medicaments and biological substances; Z91.018 Allergy to other foods; Z79.899 Other long term (current) drug therapy; Z86.39 Personal history of other endocrine, nutritional and metabolic disease; D64.9 Anemia, unspecified; D72.819 Decreased white blood cell count, unspecified; R79.89 Other specified abnormal findings of blood chemistry; Z86.59 Personal history of other mental and behavioral disorders; F32.A Depression, unspecified; G89.29 Other chronic pain; Z79.82 Long term (current) use of aspirin
CPT/HCPCS: 36415; 70450-TC; 70496-TC; 70498-TC; 70551-TC; 71045-TC; 80048-TC; 80053-TC; 80061-TC; 80076-TC; 82962-TC; 83735-TC; 83880; 84100-TC; 84484-TC; 85025-TC; G0378; J2060; J7050; Q9967

== ENCOUNTER 2024-11-08 08:18 | Emergency (ER) | payer MEDICARE, OTHER ==
[~2024-11-08] VITALS: Ht 149.9 cm; Wt 59.0 kg
[~2024-11-08 08:18] MED LIST changes: -ARIP10TA57 PO; +ASPI-1420 PO; +ATOR40TA PO; -LURA80TA PO; +MULT-594 PO; -QUET100T PO; +SLOW FE PO
[2024-11-08 08:28] VITALS: BP 141/66; TEMP 98
[2024-11-08] MEDS ORDERED: CHLO473M5 PO (08:41)
[2024-11-08 08:54] VITALS: O2SAT 98
== END 2024-11-08 08:55 | disposition home or self-care (01) ==
LOC: ER 08:20
DX: T20.10XA Burn of first degree of head, face, and neck, unspecified site, initial encounter (principal); L30.9 Dermatitis, unspecified; E78.5 Hyperlipidemia, unspecified; I10 Essential (primary) hypertension; K12.1 Other forms of stomatitis; Z79.82 Long term (current) use of aspirin; Z87.820 Personal history of traumatic brain injury; Z88.8 Allergy status to other drugs, medicaments and biological substances; Z87.39 Personal history of other diseases of the musculoskeletal system and connective tissue; Z86.59 Personal history of other mental and behavioral disorders; X10.2XXA Contact with fats and cooking oils, initial encounter; Y93.89 Activity, other specified; Y92.89 Other specified places as the place of occurrence of the external cause; Y99.8 Other external cause status

== ENCOUNTER 2025-02-16 09:54 | Emergency (ER) | payer MEDICARE, OTHER ==
[~2025-02-16] VITALS: Ht 149.9 cm; Wt 58.5 kg
[~2025-02-16 09:54] MED LIST changes: +CHLO473M5 PO
[2025-02-16] MEDS ORDERED: CHLORHEXIDINE GLUCONATE 15 ML UDC MM ONE (10:27)
[2025-02-16] MEDS ORDERED: AMOX/CLAVULANATE 875 MG TABLET ONE (10:27)
[2025-02-16] MEDS ORDERED: IBUPROFEN 600 MG TABLET ONE (10:27)
[2025-02-16] MEDS ORDERED: IBUP-1490 PO (10:31)
[2025-02-16] MEDS ORDERED: AMOX-430 PO (10:31)
[2025-02-16] MEDS ORDERED: CHLO473M5 PO (10:31)
[2025-02-16] MEDS ORDERED: ACET-73 PO (10:31)
[2025-02-16] MEDS: AMOX/CLAVULANATE 875 MG TABLET PO ONE (10:33)
[2025-02-16] MEDS: CHLORHEXIDINE GLUCONATE 15 ML UDC MM SCH (10:34)
[2025-02-16] MEDS: IBUPROFEN 600 MG TABLET PO ONE (10:34)
[2025-02-16 10:36] VITALS: BP 158/78; TEMP 98.5; O2SAT 99
== END 2025-02-16 10:37 | disposition home or self-care (01) ==
LOC: ER 09:56
DX: K04.7 Periapical abscess without sinus (principal); K02.9 Dental caries, unspecified; I11.9 Hypertensive heart disease without heart failure; E78.5 Hyperlipidemia, unspecified; K05.10 Chronic gingivitis, plaque induced; Z79.82 Long term (current) use of aspirin; Z87.820 Personal history of traumatic brain injury; Z88.8 Allergy status to other drugs, medicaments and biological substances